=== PATIENT | female | born 1985 | race African-American/Black ===

== ENCOUNTER 2019-10-21 09:56 | Inpatient (IN) | payer OTHER ==
[2019-10-21 10:59] VITALS: BMI 37.9
--- NOTE | 2019-10-21 14:18 | HP ---
CIWA Score Nausea/Vomitin-Mild Nausea/No Vomiting Muscle Tremors: 1-None Visible, but [place] Anxiety: 2 Agitation: 0-Normal Activity Paroxysmal Sweats: No Perspiration Orientation: 1-Uncertain about Date Tacttile Disturbances: 0-None Auditory Disturbances: 0-None Visual Disturbances: 0-None Headache: 1-Very Mild CIWA-Ar Total Score: 6 - Admission Criteria OASAS Guidelines: Admission for Medically Managed Detox: Requires at least one of the followin. CIWA greater than 12 2. Seizures within the past 24 hours 3. Delirium tremens within the past 24 hours 4. Hallucinations within the past 24 hours 5. Acute intervention needed for co occurring medical disorder 6. Acute intervention needed for co occurring psychiatric disorder 7. Severe withdrawal that cannot be handled at a lower level of care (continued vomiting, continued diarrhea, abnormal vital signs) requiring intravenous medication and/or fluids 8. Admitting History and Physical - Primary Care Physician PCP: Dr. Prajapati ([address] [place] [address]) - Admission History of Present Illness: 34 yo f w/ PMH IDDM who comes in for help with detox/rehab from ETOH and marijuana/Spice. The patient endorses drinking 1x 25oz can of trip and 2 can of cobra daily since the age of 7. Last drink was yesterday. The patent denies blackouts or seizures related to alcohol in the past. The patient endorses smoking 2 blunts of marijuana per day with her last use being in June. The patient endorses smoking 2 blunts of K2 per day daily with her last use being today. The patient also has a history of insulin dependent diabetes. She states that she takes 20 units of novolog before each meal and on a sliding scale. She also takes 50units of levemir daily and 40 units HS. The patient also endorses a history of MDD which she was on psych meds for in the past. CIWA 6 Patient does not meet detox criteria at this time. Will admit the patient for rehab. History Source: Patient Limitations to Obtaining History: No Limitations - Past Medical History Endocrine: Yes: Diabetes Mellitus (Insulin dependent) - Past Surgical History Past Surgical History: Yes: None Admission ROS S - HPI Allergies/Adverse Reactions: Allergies Allergy/AdvReac Type Severity Reaction Status Date / Time bupropion [From Wellbutrin] Allergy Rash Verified 10/21/19 10:46 Penicillins Allergy Rash Verified 10/21/19 10:46 Pork/Porcine Containing Allergy Rash Verified 10/21/19 10:46 Products shellfish derived Allergy Rash Verified 10/21/19 10:46 - Ebola screening Have you traveled outside of the country in the last 21 days: No Have you had contact with anyone from an Ebola affected area: No - Review of Systems Constitutional: Weakness EENT: reports: No Symptoms Reported Respiratory: reports: No Symptoms reported Cardiac: reports: No Symptoms Reported GI: reports: Nausea : reports: No Symptoms Reported Neuro: reports: Headache Psychiatric: reports: Judgement Intact, Mood/Affect Appropiate, Orientated x3 Patient History - Smoking Cessation Smoking history: Current every day smoker Have you smoked in the past 12 months: Yes Aproximately how many cigarettes per day: 10 Initiated information on smoking cessation: Yes 'Breaking Loose' booklet given: 10/21/19 - Substances abused Alcohol Substance route: Oral Frequency: Daily Amount used: (2)25oz beer & 1 trip Age of first use: 7 Date of last use: 10/21/19 K2/Spice Substance route: Smoking Frequency: Daily Amount used: 2 blunts Age of first use: 34 Date of last use: 10/21/19 Marijuana/Hashish Substance route: Smoking Frequency: Daily Amount used: 2 blunts Age of first use: 11 Date of last use: 10/21/19 Admission Physical Exam S - Vital Signs Vital Signs: Vital Signs - 24 hr 10/21/19 10:44 Temperature 97.6 F Pulse Rate 101 H Respiratory 20 Rate Blood Pressure 125/74 - Physical HEENTM: Yes: EOMI, Normal ENT Inspection, JULIANN Respiratory: Yes: Chest Non-Tender, Lungs Clear, Normal Breath Sounds, No Respiratory Distress, No Accessory Muscle Use Neck: Yes: Trachea in good position Cardiology: Yes: Regular Rhythm, Regular Rate, S1, S2. No: JVD, Murmur, Gallop/ S3, Gallop/S4 Abdominal: Yes: Normal Bowel Sounds, Non Tender, Flat, Soft Neurological: Yes: filter bed placer II-XII NML intact, Fully Oriented, Alert, Motor Strength 5/5, Normal Mood/Affect Integumentary: Yes: Normal Color, Dry, Warm - Diagnostic (1) Alcohol dependence Current Visit: Yes Status: Acute (2) Marijuana smoker Current Visit: Yes Status: Acute (3) Diabetes mellitus Current Visit: Yes Status: Acute Breathalyzer - Breathalyzer Breathalyzer: 0 Urine Drug Screen - Test Device Lot number: [id number] Expiration date: 05/12/21 - Control Is test valid?: Yes - Results Drug screen NEGATIVE: Yes Inpatient Rehab Admission - Rehab Decision to Admit Inpatient rehab admission?: Yes - Initial Determination Are CD services needed?: Yes Free of communicable disease: Yes Not in need of hospitalization: Yes - Rehab Admission Criteria Previous failed treatment: Yes Poor recovery environment: Yes Comorbidities: Yes Lacks judgement: Yes Patient is meeting Inpatient Rehab admission criteria:: Yes
[2019-10-21] MEDS ORDERED: MAG HYDROX/AL HYDROX/SIMETH 30 ML UNIT-DOSE CUP PO PRN (14:46)
[2019-10-21] MEDS ORDERED: MAGNESIUM CITRATE 300 ML BOTTLE PO PRN (14:46)
[2019-10-21] MEDS ORDERED: guaiFENesin 200 MG/10 ML 10 ML UNIT-DOSE CUPS PO PRN (14:46)
[2019-10-21] MEDS ORDERED: MAGNESIUM HYDROX 2400MG/30ML ORAL SUSPENSION 30 ML CUP PO PRN (14:46)
[2019-10-21] MEDS ORDERED: MENTHOL/PHENOL 1 EACH UD MM PRN (14:46)
[2019-10-21] MEDS ORDERED: LOPERAMIDE HCL 2 MG CAPSULE PO PRN (14:46)
[2019-10-21] MEDS ORDERED: IBUPROFEN 400 MG TABLET (FP) PO PRN (14:46)
[2019-10-21] MEDS ORDERED: ACETAMINOPHEN 325 MG TABLET (FP) PO PRN (14:46)
[2019-10-21] MEDS ORDERED: P-EPHED 60MG/TRIPROLIDI 2.5MG TABLET PO PRN (14:46)
--- NOTE | 2019-10-21 15:28 | PN ---
Teaching Attending Note Name of Resident: Matteo De León ATTENDING PHYSICIAN STATEMENT I saw and evaluated the patient. I reviewed the resident's note and discussed the case with the resident. I agree with the resident's findings and plan as documented. SUBJECTIVE:this 34 years old female with alcohol disorder,marijuana,k2 abused, multiple admissions to detox and rehab iddm bipolar disorder OBJECTIVE: Vital Signs Temperature 97.6 F 10/21/19 10:44 Pulse Rate 101 H 10/21/19 10:44 Respiratory Rate 20 10/21/19 10:44 Blood Pressure 125/74 10/21/19 10:44 O2 Sat by Pulse Oximetry (%) ASSESSMENT AND PLAN: this patient need inpatient rehab,diabetic monitoring with insulin coverage, psychiatric consultation
[2019-10-21] MEDS ORDERED: TUBERCULIN PPD 5 TU/0.1ML VIAL ID ONE (15:29)
[2019-10-21] MEDS ORDERED: INSULIN (NOVOLOG) ASPART 100 UNITS/ML 10ML VIAL SQ SCH (16:30)
[2019-10-21] MEDS: INSULIN (NOVOLOG) ASPART 100 UNITS/ML 10ML VIAL SQ SCH (16:39)
[2019-10-21] MEDS: INSULIN SLIDING SCALE (NOVOLOG) 1 VIAL SQ SCH ×2 (16:40→21:26)
[2019-10-21] MEDS: INSULIN (LEVEMIR) 100 UNITS/ML UNITS SQ SCH (21:24)
[2019-10-21] MEDS: THIAMINE HCL 100 MG TABLET (FP) PO SCH (21:26)
[2019-10-21] MEDS: MELATONIN 5 MG TABLETS PO PRN (21:27)
[2019-10-22] MEDS: INSULIN (NOVOLOG) ASPART 100 UNITS/ML 10ML VIAL SQ SCH ×3 (07:46→17:53)
[2019-10-22] MEDS: INSULIN SLIDING SCALE (NOVOLOG) 1 VIAL SQ SCH ×4 (07:48→21:16)
[2019-10-22] MEDS: PRENATAL VITAMINS W/ FOLIC ACID TABLET (FP) PO SCH (09:59)
[2019-10-22] MEDS ORDERED: PATIENT'S OWN MEDICATION (NON-FORMULARY) (Insulin Detemir [Levemir Flextouch] 50 UNIT) SQ SCH (10:00)
--- NOTE | 2019-10-22 10:53 | PN ---
S Progress Note Note: Patient is a 34 yo female w/ PMH of Bipolar disorder and IDDM who comes in to rehab for ETOH and marijuana/Spice dependence. PCP is Dr. Latanya Raygoza. Admitted to rehab 10/21/2019. States she feels well, just tired. Psych consult ordered upon admission. Laboratory Tests 10/21/19 10/21/19 10/21/19 13:23 14:51 16:35 POC Glucometer 368 469 POC Urine HCG, Qual Negative 10/21/19 10/22/19 21:23 06:51 POC Glucometer > 600 327 POC Urine HCG, Qual Vital Signs Temperature 98.4 F 10/22/19 07:02 Pulse Rate 99 H 10/22/19 07:02 Respiratory Rate 18 10/22/19 07:02 Blood Pressure 99/65 10/22/19 07:02 O2 Sat by Pulse Oximetry (%) PE: alert and oriented x 3 skin warm and dry +perrla, eoms intact bl in no acute distress ext full rom, amb ad pennie no tremors A/P: IDDM ETOH/marijuana/K2 dependence continue current medications and rehab services BGM monitoring as ordered Labs pending
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
[2019-10-22 10:56] LABS: URINE COLOR YELLOW
[2019-10-22 10:57] LABS: URINE APPEARANCE CLOUDY; URINE BILIRUBIN NEGATIVE (NEGATIVE); URINE GLUCOSE (UA) 3+ (NEGATIVE); URINE KETONE NEGATIVE (NEGATIVE)
[2019-10-22 10:58] LABS: URINE LEUK ESTERASE NEGATIVE (NEGATIVE); URINE NITRITE NEGATIVE (NEGATIVE); URINE PROTEIN 1+ (NEGATIVE)
[2019-10-22 10:59] LABS: EPI CELLS 11 /HPF (0-5/HPF); HYALINE CASTS 5.16 /lpf (0-8); URINE WBC 12.7 /hpf (0-5)
[2019-10-22 11:00] LABS: URINE BACTERIA 532.2 /hpf (NEGATIVE)
[2019-10-22 11:46] LABS: HEMATOCRIT 32.7 % (32.4-45.2); HEMOGLOBIN 10.7 GM/dL (10.7-15.3); MCH 25.1 pg (25.7-33.7); MCHC 32.8 g/dl (32.0-36.0); MEAN CELL VOLUME 76.5 fl (80-96); MEAN PLT VOLUME 9.4 fl (7.5-11.1); PLATELET COUNT 212 K/MM3 (134-434); RBC 4.27 M/mm3 (3.60-5.2); RDW 19.5 % (11.6-15.6); WHITE BLOOD COUNT 3.7 K/mm3 (4.0-10.0)
[2019-10-22 11:53] LABS: ALBUMIN 2.8 g/dl (3.4-5.0); BILIRUBIN,TOTAL 0.3 mg/dL (0.2-1); BLOOD UREA NITROGEN 7.4 mg/dL (7-18); CREATININE 0.8 mg/dL (0.55-1.3); POTASSIUM 4.1 mmol/L (3.5-5.1); TOT PROT 5.5 g/dl (6.4-8.2)
[2019-10-22] MEDS: INSULIN (LEVEMIR) 100 UNITS/ML UNITS SQ SCH (21:15)
[2019-10-22] MEDS: ARIPiprazole 10 MG TABLET PO SCH (21:18)
[2019-10-22] MEDS: ESCITALOPRAM OXALATE 10 MG TABLET (FP) PO SCH (21:18)
[2019-10-22] MEDS: THIAMINE HCL 100 MG TABLET (FP) PO SCH (21:18)
[2019-10-22] MEDS: CALCIUM 250MG/VIT-D 125 UNITS 1 COMBO TABLET PO SCH (21:20)
[2019-10-23] MEDS: INSULIN (NOVOLOG) ASPART 100 UNITS/ML 10ML VIAL SQ SCH ×3 (07:56→16:38)
[2019-10-23] MEDS ORDERED: PT OWN MED DRAWER 7, Y5N ONE ×2 (08:14→18:55)
[2019-10-23] MEDS: CALCIUM 250MG/VIT-D 125 UNITS 1 COMBO TABLET PO SCH ×2 (09:51→21:22)
[2019-10-23] MEDS: PRENATAL VITAMINS W/ FOLIC ACID TABLET (FP) PO SCH (09:51)
[2019-10-23] MEDS: NICOTINE POLACRILEX 2 MG GUM BUC PRN ×2 (16:34→21:23)
[2019-10-23] MEDS: INSULIN (LEVEMIR) 100 UNITS/ML UNITS SQ SCH (21:20)
[2019-10-23] MEDS: MELATONIN 5 MG TABLETS PO PRN (21:22)
[2019-10-23] MEDS: ESCITALOPRAM OXALATE 10 MG TABLET (FP) PO SCH (21:22)
[2019-10-23] MEDS: ARIPiprazole 10 MG TABLET PO SCH (21:22)
[2019-10-23] MEDS: THIAMINE HCL 100 MG TABLET (FP) PO SCH (21:22)
[2019-10-24] MEDS: INSULIN (NOVOLOG) ASPART 100 UNITS/ML 10ML VIAL SQ SCH ×3 (07:42→16:36)
[2019-10-24] MEDS ORDERED: PT OWN MED DRAWER 7, Y5N ONE ×2 (08:17→20:04)
[2019-10-24] MEDS: CALCIUM 250MG/VIT-D 125 UNITS 1 COMBO TABLET PO SCH ×2 (09:45→21:28)
[2019-10-24] MEDS: PRENATAL VITAMINS W/ FOLIC ACID TABLET (FP) PO SCH (09:45)
[2019-10-24] MEDS: NICOTINE POLACRILEX 2 MG GUM BUC PRN (11:51)
[2019-10-24] MEDS: ESCITALOPRAM OXALATE 10 MG TABLET (FP) PO SCH (21:28)
[2019-10-24] MEDS: INSULIN (LEVEMIR) 100 UNITS/ML UNITS SQ SCH (21:28)
[2019-10-24] MEDS: ARIPiprazole 10 MG TABLET PO SCH (21:28)
[2019-10-24] MEDS: THIAMINE HCL 100 MG TABLET (FP) PO SCH (21:28)
[2019-10-24] MEDS: MELATONIN 5 MG TABLETS PO PRN (21:29)
[2019-10-25] MEDS: INSULIN (NOVOLOG) ASPART 100 UNITS/ML 10ML VIAL SQ SCH ×3 (07:35→17:37)
[2019-10-25] MEDS ORDERED: PT OWN MED DRAWER 7, Y5N ONE (08:39)
[2019-10-25] MEDS: CALCIUM 250MG/VIT-D 125 UNITS 1 COMBO TABLET PO SCH ×2 (09:58→21:24)
[2019-10-25] MEDS: PRENATAL VITAMINS W/ FOLIC ACID TABLET (FP) PO SCH (09:58)
[2019-10-25] MEDS ORDERED: INSULIN (NOVOLOG) ASPART 100 UNITS/ML 10ML VIAL ONE (11:57)
[2019-10-25 12:26] LABS: ALBUMIN 3.1 g/dl (3.4-5.0); BILIRUBIN,TOTAL 0.4 mg/dL (0.2-1); CALCIUM 8.6 mg/dL (8.5-10.1); CREATININE 0.7 mg/dL (0.55-1.3); POTASSIUM 4.3 mmol/L (3.5-5.1)
--- NOTE | 2019-10-25 13:10 | PN ---
[facility] Progress Note Note: Pt requests to see the MD re:her insulin. Pt reports he gets Levemir 50 units SC in the morning and Levemir 40 units sc at night. Also takes Regular insulin 20 units Three times daily with each meal. Pt reports she has a PCP, Dr Lambert at the [facility] on [address] [place] [address]. pt reports she saw the doctor a few days befor coming into treatment and she was prescribed Novolog and no Levemir. Discussed with patient the need to get intouch with her PCP before discharge on Home prescriptions recommended. Vital Signs - 24 hr 10/25/19 10/25/19 10/25/19 00:30 03:30 07:21 Temperature 97.7 F Pulse Rate 65 Respiratory 18 18 18 Rate Blood Pressure 108/68 Laboratory Tests 10/21/19 10/21/19 10/21/19 13:23 14:51 16:35 WBC RBC Hgb Hct MCV MCH MCHC RDW Plt Count MPV Sodium Potassium Chloride Carbon Dioxide Anion Gap BUN Creatinine Est GFR (CKD-EPI)AfAm Est GFR (CKD-EPI)NonAf POC Glucometer 368 469 Random Glucose Calcium Total Bilirubin AST ALT Alkaline Phosphatase Total Protein Albumin Urine Color Urine Appearance Urine pH Ur Specific [place] Urine Protein Urine Glucose (UA) Urine Ketones Urine Blood Urine Nitrite Urine Bilirubin Urine Urobilinogen Ur Leukocyte Esterase Urine WBC (Auto) Urine Casts (Auto) U Epithel Cells (Auto) Urine Bacteria (Auto) POC Urine HCG, Qual Negative RPR Titer 10/21/19 10/22/19 10/22/19 21:23 06:51 08:00 WBC RBC Hgb Hct MCV MCH MCHC RDW Plt Count MPV Sodium Potassium Chloride Carbon Dioxide Anion Gap BUN Creatinine Est GFR (CKD-EPI)AfAm Est GFR (CKD-EPI)NonAf POC Glucometer > 600 327 Random Glucose Calcium Total Bilirubin AST ALT Alkaline Phosphatase Total Protein Albumin Urine Color Yellow Urine Appearance Cloudy Urine pH 6.0 Ur Specific Kinz[place] 1.047 H Urine Protein 1+ H Urine Glucose (UA) 3+ H Urine Ketones Negative Urine Blood 3+ H Urine Nitrite Negative Urine Bilirubin Negative Urine Urobilinogen 1.0 Ur Leukocyte Esterase Negative Urine WBC (Auto) 12.7 Urine Casts (Auto) 5.16 U Epithel Cells (Auto) 11 Urine Bacteria (Auto) 532.2 POC Urine HCG, Qual RPR Titer 10/22/19 10/22/19 10/22/19 08:50 08:50 08:50 WBC 3.7 L RBC 4.27 Hgb 10.7 Hct 32.7 MCV 76.5 L MCH 25.1 L MCHC 32.8 RDW 19.5 H Plt Count 212 MPV 9.4 Sodium 133 L Potassium 4.1 Chloride 99 Carbon Dioxide 28 Anion Gap 6 L BUN 7.4 Creatinine 0.8 Est GFR (CKD-EPI)AfAm 109.93 Est GFR (CKD-EPI)NonAf 94.85 POC Glucometer Random Glucose 548 H* Calcium 8.0 L Total Bilirubin 0.3 AST 13 L ALT 17 Alkaline Phosphatase 72 Total Protein 5.5 L Albumin 2.8 L Urine Color Urine Appearance Urine pH Ur Specific Kinz[place] Urine Protein Urine Glucose (UA) Urine Ketones Urine Blood Urine Nitrite Urine Bilirubin Urine Urobilinogen Ur Leukocyte Esterase Urine WBC (Auto) Urine Casts (Auto) U Epithel Cells (Auto) Urine Bacteria (Auto) POC Urine HCG, Qual RPR Titer Nonreactive 10/22/19 10/22/19 10/22/19 11:56 17:03 21:14 WBC RBC Hgb Hct MCV MCH MCHC RDW Plt Count MPV Sodium Potassium Chloride Carbon Dioxide Anion Gap BUN Creatinine Est GFR (CKD-EPI)AfAm Est GFR (CKD-EPI)NonAf POC Glucometer 385 419 358 Random Glucose Calcium Total Bilirubin AST ALT Alkaline Phosphatase Total Protein Albumin Urine Color Urine Appearance Urine pH Ur Specific [place] Urine Protein Urine Glucose (UA) Urine Ketones Urine Blood Urine Nitrite Urine Bilirubin Urine Urobilinogen Ur Leukocyte Esterase Urine WBC (Auto) Urine Casts (Auto) U Epithel Cells (Auto) Urine Bacteria (Auto) POC Urine HCG, Qual RPR Titer 10/23/19 10/23/19 10/23/19 07:05 11:50 16:32 WBC RBC Hgb Hct MCV MCH MCHC RDW Plt Count MPV Sodium Potassium Chloride Carbon Dioxide Anion Gap BUN Creatinine Est GFR (CKD-EPI)AfAm Est GFR (CKD-EPI)NonAf POC Glucometer 245 259 459 Random Glucose Calcium Total Bilirubin AST ALT Alkaline Phosphatase Total Protein Albumin Urine Color Urine Appearance Urine pH Ur Specific Kin[place] Urine Protein Urine Glucose (UA) Urine Ketones Urine Blood Urine Nitrite Urine Bilirubin Urine Urobilinogen Ur Leukocyte Esterase Urine WBC (Auto) Urine Casts (Auto) U Epithel Cells (Auto) Urine Bacteria (Auto) POC Urine HCG, Qual RPR Titer 10/23/19 10/24/19 10/24/19 21:18 06:30 11:49 WBC RBC Hgb Hct MCV MCH MCHC RDW Plt Count MPV Sodium Potassium Chloride Carbon Dioxide Anion Gap BUN Creatinine Est GFR (CKD-EPI)AfAm Est GFR (CKD-EPI)NonAf POC Glucometer 478 305 392 Random Glucose Calcium Total Bilirubin AST ALT Alkaline Phosphatase Total Protein Albumin Urine Color Urine Appearance Urine pH Ur Specific [place] Urine Protein Urine Glucose (UA) Urine Ketones Urine Blood Urine Nitrite Urine Bilirubin Urine Urobilinogen Ur Leukocyte Esterase Urine WBC (Auto) Urine Casts (Auto) U Epithel Cells (Auto) Urine Bacteria (Auto) POC Urine HCG, Qual RPR Titer 10/24/19 10/24/19 10/25/19 16:30 21:25 06:38 WBC RBC Hgb Hct MCV MCH MCHC RDW Plt Count MPV Sodium Potassium Chloride Carbon Dioxide Anion Gap BUN Creatinine Est GFR (CKD-EPI)AfAm Est GFR (CKD-EPI)NonAf POC Glucometer 505 438 324 Random Glucose Calcium Total Bilirubin AST ALT Alkaline Phosphatase Total Protein Albumin Urine Color Urine Appearance Urine pH Ur Specific [place] Urine Protein Urine Glucose (UA) Urine Ketones Urine Blood Urine Nitrite Urine Bilirubin Urine Urobilinogen Ur Leukocyte Esterase Urine WBC (Auto) Urine Casts (Auto) U Epithel Cells (Auto) Urine Bacteria (Auto) POC Urine HCG, Qual RPR Titer 10/25/19 10/25/19 08:30 11:56 WBC RBC Hgb Hct MCV MCH MCHC RDW Plt Count MPV Sodium 133 L Potassium 4.3 Chloride 101 Carbon Dioxide 30 Anion Gap 2 L BUN 9.0 Creatinine 0.7 Est GFR (CKD-EPI)AfAm 129.19 Est GFR (CKD-EPI)NonAf 111.47 POC Glucometer 310 Random Glucose 362 H Calcium 8.6 Total Bilirubin 0.4 AST 15 ALT 21 Alkaline Phosphatase 75 Total Protein 6.0 L Albumin 3.1 L Urine Color Urine Appearance Urine pH Ur Specific Kin[place] Urine Protein Urine Glucose (UA) Urine Ketones Urine Blood Urine Nitrite Urine Bilirubin Urine Urobilinogen Ur Leukocyte Esterase Urine WBC (Auto) Urine Casts (Auto) U Epithel Cells (Auto) Urine Bacteria (Auto) POC Urine HCG, Qual RPR Titer Alert o x 3 nad oob ambulating with steady gait. A/P Rehab patient hx IDDM Maintain safety D/w pt will be followed up by Resident Consult for medication management Dietary consult ordered.
--- NOTE | 2019-10-25 14:03 | CONSULT ---
Consultation: REQUESTING PROVIDER: CONSULT REQUEST: We have been asked to medically evaluate this patient for diabetic control. HISTORY OF PRESENT ILLNESS: 34 yo f w/ PMH IDDM who comes in for help with detox/rehab from ETOH and marijuana/Spice. We were consulted for assistance with management of her insulin regimen. The patient states that she usually takes Levemir 50units in the AM and 40 units in the PM as well as Novolog 20 units with each meal. On admission, the patient was placed on Levemir 40 units in the PM only to avoid hypoglycemia as her eating habits in the community were unclear. On interview, the patient states that she is eating similar to how she eats in the community and is concerned that her sugar was consistently high. Patient denies signs or symptoms of hyperglycemia or HHS. On chart review, the patient' BGM has been between 300 and 500 over the past few days. REVIEW OF SYSTEMS: CONSTITUTIONAL: Absent: fever, chills, diaphoresis, generalized weakness, malaise, loss of appetite, weight change HEENT: Absent: rhinorrhea, nasal congestion, throat pain, throat swelling, difficulty swallowing, mouth swelling, ear pain, eye pain, visual changes CARDIOVASCULAR: Absent: chest pain, syncope, palpitations, irregular heart rate, lightheadedness , peripheral edema RESPIRATORY: Absent: cough, shortness of breath, dyspnea with exertion, orthopnea, wheezing, stridor, hemoptysis GASTROINTESTINAL: Absent: abdominal pain, abdominal distension, nausea, vomiting, diarrhea, constipation, melena, hematochezia GENITOURINARY: Absent: dysuria, frequency, urgency, hesitancy, hematuria, flank pain, genital pain MUSCULOSKELETAL: Absent: myalgia, arthralgia, joint swelling, back pain, neck pain SKIN: Absent: rash, itching, pallor HEMATOLOGIC/IMMUNOLOGIC: Absent: easy bleeding, easy bruising, lymphadenopathy, frequent infections ENDOCRINE: Absent: unexplained weight gain, unexplained weight loss, heat intolerance, cold intolerance NEUROLOGIC: Absent: headache, focal weakness or paresthesias, dizziness, unsteady gait, seizure, mental status changes, bladder or bowel incontinence PSYCHIATRIC: Absent: anxiety, depression, suicidal or homicidal ideation, hallucinations. PHYSICAL EXAMINATION Vital Signs - 24 hr 10/25/19 10/25/19 10/25/19 00:30 03:30 07:21 Temperature 97.7 F Pulse Rate 65 Respiratory 18 18 18 Rate Blood Pressure 108/68 GENERAL: Awake, alert, and fully oriented, in no acute distress. LUNGS: Breath sounds equal, clear to auscultation bilaterally. No wheezes, and no crackles. No accessory muscle use. HEART: Regular rate and rhythm, normal S1 and S2 without murmur, rub or gallop. ABDOMEN: Soft, nontender, not distended, normoactive bowel sounds, no guarding, no rebound, no masses. No hepatomegaly or splenomegaly. LOWER EXTREMITIES: 2+ pulses, warm, well-perfused. No calf tenderness. No peripheral edema. SKIN: Warm, dry, normal turgor, no rashes or lesions noted. Laboratory Results - last 24 hr 10/24/19 10/24/19 10/25/19 16:30 21:25 06:38 Sodium Potassium Chloride Carbon Dioxide Anion Gap BUN Creatinine Est GFR (CKD-EPI)AfAm Est GFR (CKD-EPI)NonAf POC Glucometer 505 438 324 Random Glucose Calcium Total Bilirubin AST ALT Alkaline Phosphatase Total Protein Albumin 10/25/19 10/25/19 08:30 11:56 Sodium 133 L Potassium 4.3 Chloride 101 Carbon Dioxide 30 Anion Gap 2 L BUN 9.0 Creatinine 0.7 Est GFR (CKD-EPI)AfAm 129.19 Est GFR (CKD-EPI)NonAf 111.47 POC Glucometer 310 Random Glucose 362 H Calcium 8.6 Total Bilirubin 0.4 AST 15 ALT 21 Alkaline Phosphatase 75 Total Protein 6.0 L Albumin 3.1 L Active Medications Generic Name Dose Route Start Last Admin Trade Name Freq PRN Reason Stop Dose Admin Acetaminophen 650 mg 10/21/19 14:46 Tylenol - PO Q4H PRN FEVER Al Hydroxide/Mg Hydroxide 30 ml 10/21/19 14:46 Mylanta Oral Suspension - PO Q6H PRN DYSPEPSIA Aripiprazole 10 mg 10/22/19 22:00 10/24/19 21:28 Abilify PO 10 mg HS SHAHID Administration Calcium/Vitamin D 1 tab 10/22/19 22:00 10/25/19 09:58 Oscal 250 Mg+D - PO 10/29/19 21:59 1 tab BID SHAHID Administration Escitalopram Oxalate 10 mg 10/22/19 22:00 10/24/19 21:28 Lexapro - PO 10 mg HS SHAHID Administration Eucalyptus/Menthol/Phenol/Sorbitol 1 each 10/21/19 14:46 Cepastat Lozenge - MM Q4H PRN SORE THROAT Guaifenesin 10 ml 10/21/19 14:46 Robitussin - PO Q6H PRN COUGH Ibuprofen 400 mg 10/21/19 14:46 Motrin - PO Q6H PRN Pain level 4-6 Insulin Aspart 10 units 10/21/19 16:30 10/25/19 11:58 Novolog Vial SQ 10 units TIDAC [facility] Administration Protocol Insulin Aspart 1 vial 10/25/19 16:30 Novolog Vial Sliding Scale - SQ ACHS [facility] Protocol Insulin Detemir 40 units 10/21/19 22:00 10/24/19 21:28 Levemir Vial SQ 40 units HS SHAHID Administration Loperamide HCl 4 mg 10/21/19 14:46 Imodium - PO Q6H PRN DIARRHEA Magnesium Citrate 300 ml 10/21/19 14:46 Citroma - PO Q48H PRN CONSTIPATION Magnesium Hydroxide 30 ml 10/21/19 14:46 Milk Of Magnesia - PO DAILY PRN CONSTIPATION Melatonin 5 mg 10/21/19 22:00 10/24/19 21:29 Melatonin PO 5 mg HS PRN Administration INSOMNIA Nicotine Polacrilex 2 mg 10/21/19 14:46 10/24/19 11:51 Nicorette Gum - BUC 2 mg Q2H PRN Administration NICOTINE REPLACEMENT RX Multivit/Folic Acid/Iron 1 tab 10/22/19 10:00 10/25/19 09:58 Vitamins (Sjr) - PO Not Given DAILY [facility] Pseudoephedrine/Triprolidine 1 combo 10/21/19 14:46 Actifed - PO TID PRN NASAL CONGESTION Thiamine HCl 100 mg 10/21/19 22:00 10/24/19 21:28 Vitamin B1 - PO 100 mg HS [facility] Administration ASSESSMENT/PLAN: 34 yo f w/ PMH IDDM who comes in for help with detox/rehab from ETOH and marijuana/Spice. We were consulted for assistance with management of her insulin regimen. #IDDM -patient consistently hyperglycemic on current regimen -per patient, she is eating normally right now; no nausea, vomiting, missed meals. -Patient's home medications verified with the patient's pharmacy -will resume the patient's home insulin regimen at this time. -monitor the patiet closely for signs of hypoglycemia -will start ISS to cover the patient in the event of breakthrough hyperglycemic episodes Dispo: We will continue to follow the patient. Thank you for this consultative opportunity. Problem List - Problems (1) Alcohol dependence Code(s): F10.20 - ALCOHOL DEPENDENCE, UNCOMPLICATED (2) Marijuana smoker Code(s): F12.90 - CANNABIS USE, UNSPECIFIED, UNCOMPLICATED (3) Diabetes mellitus Code(s): E11.9 - TYPE 2 DIABETES MELLITUS WITHOUT COMPLICATIONS Visit type - Emergency Visit Emergency Visit: No - New Patient This patient is new to me today: Yes Date on this admission: 10/25/19 - Critical Care Critical Care patient: No ATTENDING PHYSICIAN STATEMENT I saw and evaluated the patient. I reviewed the resident's note and discussed the case with the resident. I agree with the resident's findings and plan as documented. SUBJECTIVE: OBJECTIVE: ASSESSMENT AND PLAN:
--- NOTE | 2019-10-25 14:32 | PN ---
[facility] Progress Note Note: PATIENT C/O IRRITATION AND SCRATCH TO INNER THIGH AREA. NO ACTIVE BLEEDING REPORTED. WILL ORDER BACITRACIN BID X 5 DAYS. Vital Signs Temperature 97.7 F 10/25/19 07:21 Pulse Rate 65 10/25/19 07:21 Respiratory Rate 18 10/25/19 07:21 Blood Pressure 108/68 10/25/19 07:21 O2 Sat by Pulse Oximetry (%)
[2019-10-25] MEDS: INSULIN SLIDING SCALE (NOVOLOG) 1 VIAL SQ SCH ×2 (18:25→21:25)
[2019-10-25] MEDS: INSULIN (LEVEMIR) 100 UNITS/ML UNITS SQ SCH (21:20)
[2019-10-25] MEDS: ARIPiprazole 10 MG TABLET PO SCH (21:23)
[2019-10-25] MEDS: BACITRACIN 15 GM TUBE TOPICAL OINTMENT TP SCH (21:23)
[2019-10-25] MEDS: THIAMINE HCL 100 MG TABLET (FP) PO SCH (21:23)
[2019-10-25] MEDS: MELATONIN 5 MG TABLETS PO PRN (21:23)
[2019-10-25] MEDS: ESCITALOPRAM OXALATE 10 MG TABLET (FP) PO SCH (21:23)
[2019-10-26 07:40] VITALS: TEMP 97.8
[2019-10-26] MEDS: INSULIN SLIDING SCALE (NOVOLOG) 1 VIAL SQ SCH ×4 (08:48→21:21)
[2019-10-26] MEDS: INSULIN (NOVOLOG) ASPART 100 UNITS/ML 10ML VIAL SQ SCH ×3 (08:49→16:42)
[2019-10-26] MEDS ORDERED: PT OWN MED DRAWER 7, Y5N ONE (08:52)
[2019-10-26] MEDS ORDERED: INSULIN (NOVOLOG) ASPART 100 UNITS/ML 10ML VIAL ONE ×2 (08:52→21:21)
[2019-10-26] MEDS: CALCIUM 250MG/VIT-D 125 UNITS 1 COMBO TABLET PO SCH ×2 (10:49→21:24)
[2019-10-26] MEDS: INSULIN (LEVEMIR) 100 UNITS/ML UNITS SQ SCH ×2 (10:53→21:16)
[2019-10-26] MEDS: BACITRACIN 15 GM TUBE TOPICAL OINTMENT TP SCH ×2 (10:54→21:25)
[2019-10-26] MEDS: PRENATAL VITAMINS W/ FOLIC ACID TABLET (FP) PO SCH (10:55)
--- NOTE | 2019-10-26 17:48 | PN ---
S Progress Note Note: I was called for cbg of 405mg/dl. Pt is on novolog insulin 20units SQ tid and novolog insulin sliding scale. machine sander instructed to administer novolog 20units on schedule and hold 5pm novolog insulin sliding scale.
[2019-10-26] MEDS: ARIPiprazole 10 MG TABLET PO SCH (21:23)
[2019-10-26] MEDS: THIAMINE HCL 100 MG TABLET (FP) PO SCH (21:23)
[2019-10-26] MEDS: ESCITALOPRAM OXALATE 10 MG TABLET (FP) PO SCH (21:23)
[2019-10-27] MEDS: INSULIN SLIDING SCALE (NOVOLOG) 1 VIAL SQ SCH ×2 (06:54→11:57)
[2019-10-27 07:16] VITALS: BP 105/69; PULSE 68
[2019-10-27] MEDS: INSULIN (NOVOLOG) ASPART 100 UNITS/ML 10ML VIAL SQ SCH ×2 (08:11→12:45)
--- NOTE | 2019-10-27 08:20 | PN ---
Teaching Attending Note Name of Resident: Matteo De León ATTENDING PHYSICIAN STATEMENT I saw and evaluated the patient. I reviewed the resident's note and discussed the case with the resident. I agree with the resident's findings and plan as documented. SUBJECTIVE: I agree with resident's subjective findings OBJECTIVE: I agree with resident's objective findings. ASSESSMENT AND PLAN: Agree with medical assessment of her diabetes. Dr. Barraza
[2019-10-27] MEDS ORDERED: PT OWN MED DRAWER 7, Y5N ONE (09:16)
[2019-10-27] MEDS: CALCIUM 250MG/VIT-D 125 UNITS 1 COMBO TABLET PO SCH (10:23)
[2019-10-27] MEDS: PRENATAL VITAMINS W/ FOLIC ACID TABLET (FP) PO SCH (10:23)
[2019-10-27] MEDS: BACITRACIN 15 GM TUBE TOPICAL OINTMENT TP SCH (10:24)
--- NOTE | 2019-10-27 10:49 | PN ---
[facility] Progress Note Note: Nurse Marely called to report BGM at 10 a.m of 161 mg/dl. Pt to receive levemir 50 mg sq at 10 a.m. as scheduled. hold sliding scale at this time. Vital Signs - 24 hr 10/27/19 10/27/19 10/27/19 00:30 03:30 07:16 Temperature 97.8 F Pulse Rate 68 Respiratory 18 18 18 Rate Blood Pressure 105/69
[2019-10-27] MEDS: INSULIN (LEVEMIR) 100 UNITS/ML UNITS SQ SCH (10:50)
[2019-10-27] MEDS ORDERED: INSULIN (NOVOLOG) ASPART 100 UNITS/ML 10ML VIAL SQ ONE (13:45)
--- NOTE | 2019-10-27 14:07 | DS ---
[facility] Rehab Discharge Summary - [facility] Rehab Discharge Summary Admission Date: 10/21/19 Discharge Date: 10/27/19 - History Present History: Alcohol dependence, Cannabis dependence Pertinent Past History: Pt admitted on 10/18/19 for alcohol and cocaine use. Pt with diabetes. Using both levemir and novolog insulin. f/s today has been in the low 100's. Pt wanted to have usual dose of Novolog 20 units with a BGM of 111. We felt it was unsafe to give 20 units with a low BGM. Pt now states that since she is not getting the insulin she needs she is going to sign out now. Tried to d/w the risk of hypoglycemia and coma if her BGM goes too low- pt received 6 units of novolog for f/s ~250. Pt states she will f/u her PCP, Dr Lambert at the [facility] on [address] [place] [address]. pt reports she saw the doctor a few days before coming into treatment and she was prescribed Novolog and no Levemir. Pt states she needs levemir. She has all the other medications. - Discharge Physical Exam Vital Signs: Vital Signs Temperature 97.8 F 10/27/19 07:16 Pulse Rate 68 10/27/19 07:16 Respiratory Rate 18 10/27/19 07:16 Blood Pressure 105/69 10/27/19 07:16 O2 Sat by Pulse Oximetry (%) Pertinent Admission Physical Exam Findings: alert and oriented Vital Signs - 24 hr 10/27/19 10/27/19 10/27/19 00:30 03:30 07:16 Temperature 97.8 F Pulse Rate 68 Respiratory 18 18 18 Rate Blood Pressure 105/69 Laboratory Tests 10/21/19 10/21/19 10/21/19 13:23 14:51 16:35 WBC RBC Hgb Hct MCV MCH MCHC RDW Plt Count MPV Sodium Potassium Chloride Carbon Dioxide Anion Gap BUN Creatinine Est GFR (CKD-EPI)AfAm Est GFR (CKD-EPI)NonAf POC Glucometer [phone] Random Glucose Calcium Total Bilirubin AST ALT Alkaline Phosphatase Total Protein Albumin Urine Color Urine Appearance Urine pH Ur Specific [place] Urine Protein Urine Glucose (UA) Urine Ketones Urine Blood Urine Nitrite Urine Bilirubin Urine Urobilinogen Ur Leukocyte Esterase Urine WBC (Auto) Urine Casts (Auto) U Epithel Cells (Auto) Urine Bacteria (Auto) POC Urine HCG, Qual Negative RPR Titer 10/21/19 10/22/19 10/22/19 21:23 06:51 08:00 WBC RBC Hgb Hct MCV MCH MCHC RDW Plt Count MPV Sodium Potassium Chloride Carbon Dioxide Anion Gap BUN Creatinine Est GFR (CKD-EPI)AfAm Est GFR (CKD-EPI)NonAf POC Glucometer > 600 327 Random Glucose Calcium Total Bilirubin AST ALT Alkaline Phosphatase Total Protein Albumin Urine Color Yellow Urine Appearance Cloudy Urine pH 6.0 Ur Specific [place] 1.047 H Urine Protein 1+ H Urine Glucose (UA) 3+ H Urine Ketones Negative Urine Blood 3+ H Urine Nitrite Negative Urine Bilirubin Negative Urine Urobilinogen 1.0 Ur Leukocyte Esterase Negative Urine WBC (Auto) 12.7 Urine Casts (Auto) 5.16 U Epithel Cells (Auto) 11 Urine Bacteria (Auto) 532.2 POC Urine HCG, Qual RPR Titer 10/22/19 10/22/19 10/22/19 08:50 08:50 08:50 WBC 3.7 L RBC 4.27 Hgb 10.7 Hct 32.7 MCV 76.5 L MCH 25.1 L MCHC 32.8 RDW 19.5 H Plt Count 212 MPV 9.4 Sodium 133 L Potassium 4.1 Chloride 99 Carbon Dioxide 28 Anion Gap 6 L BUN 7.4 Creatinine 0.8 Est GFR (CKD-EPI)AfAm 109.93 Est GFR (CKD-EPI)NonAf 94.85 POC Glucometer Random Glucose 548 H* Calcium 8.0 L Total Bilirubin 0.3 AST 13 L ALT 17 Alkaline Phosphatase 72 Total Protein 5.5 L Albumin 2.8 L Urine Color Urine Appearance Urine pH Ur Specific [place] Urine Protein Urine Glucose (UA) Urine Ketones Urine Blood Urine Nitrite Urine Bilirubin Urine Urobilinogen Ur Leukocyte Esterase Urine WBC (Auto) Urine Casts (Auto) U Epithel Cells (Auto) Urine Bacteria (Auto) POC Urine HCG, Qual RPR Titer Nonreactive 10/22/19 10/22/19 10/22/19 11:56 17:03 21:14 WBC RBC Hgb Hct MCV MCH MCHC RDW Plt Count MPV Sodium Potassium Chloride Carbon Dioxide Anion Gap BUN Creatinine Est GFR (CKD-EPI)AfAm Est GFR (CKD-EPI)NonAf POC Glucometer [phone] Random Glucose Calcium Total Bilirubin AST ALT Alkaline Phosphatase Total Protein Albumin Urine Color Urine Appearance Urine pH Ur Specific [place] Urine Protein Urine Glucose (UA) Urine Ketones Urine Blood Urine Nitrite Urine Bilirubin Urine Urobilinogen Ur Leukocyte Esterase Urine WBC (Auto) Urine Casts (Auto) U Epithel Cells (Auto) Urine Bacteria (Auto) POC Urine HCG, Qual RPR Titer 10/23/19 10/23/19 10/23/19 07:05 11:50 16:32 WBC RBC Hgb Hct MCV MCH MCHC RDW Plt Count MPV Sodium Potassium Chloride Carbon Dioxide Anion Gap BUN Creatinine Est GFR (CKD-EPI)AfAm Est GFR (CKD-EPI)NonAf POC Glucometer [phone] Random Glucose Calcium Total Bilirubin AST ALT Alkaline Phosphatase Total Protein Albumin Urine Color Urine Appearance Urine pH Ur Specific [place] Urine Protein Urine Glucose (UA) Urine Ketones Urine Blood Urine Nitrite Urine Bilirubin Urine Urobilinogen Ur Leukocyte Esterase Urine WBC (Auto) Urine Casts (Auto) U Epithel Cells (Auto) Urine Bacteria (Auto) POC Urine HCG, Qual RPR Titer 10/23/19 10/24/19 10/24/19 21:18 06:30 11:49 WBC RBC Hgb Hct MCV MCH MCHC RDW Plt Count MPV Sodium Potassium Chloride Carbon Dioxide Anion Gap BUN Creatinine Est GFR (CKD-EPI)AfAm Est GFR (CKD-EPI)NonAf POC Glucometer [phone] Random Glucose Calcium Total Bilirubin AST ALT Alkaline Phosphatase Total Protein Albumin Urine Color Urine Appearance Urine pH Ur Specific [place] Urine Protein Urine Glucose (UA) Urine Ketones Urine Blood Urine Nitrite Urine Bilirubin Urine Urobilinogen Ur Leukocyte Esterase Urine WBC (Auto) Urine Casts (Auto) U Epithel Cells (Auto) Urine Bacteria (Auto) POC Urine HCG, Qual RPR Titer 10/24/19 10/24/19 10/25/19 16:30 21:25 06:38 WBC RBC Hgb Hct MCV MCH MCHC RDW Plt Count MPV Sodium Potassium Chloride Carbon Dioxide Anion Gap BUN Creatinine Est GFR (CKD-EPI)AfAm Est GFR (CKD-EPI)NonAf POC Glucometer [phone] Random Glucose Calcium Total Bilirubin AST ALT Alkaline Phosphatase Total Protein Albumin Urine Color Urine Appearance Urine pH Ur Specific [place] Urine Protein Urine Glucose (UA) Urine Ketones Urine Blood Urine Nitrite Urine Bilirubin Urine Urobilinogen Ur Leukocyte Esterase Urine WBC (Auto) Urine Casts (Auto) U Epithel Cells (Auto) Urine Bacteria (Auto) POC Urine HCG, Qual RPR Titer 10/25/19 10/25/19 10/25/19 08:30 11:56 16:44 WBC RBC Hgb Hct MCV MCH MCHC RDW Plt Count MPV Sodium 133 L Potassium 4.3 Chloride 101 Carbon Dioxide 30 Anion Gap 2 L BUN 9.0 Creatinine 0.7 Est GFR (CKD-EPI)AfAm 129.19 Est GFR (CKD-EPI)NonAf 111.47 POC Glucometer 310 441 Random Glucose 362 H Calcium 8.6 Total Bilirubin 0.4 AST 15 ALT 21 Alkaline Phosphatase 75 Total Protein 6.0 L Albumin 3.1 L Urine Color Urine Appearance Urine pH Ur Specific [place] Urine Protein Urine Glucose (UA) Urine Ketones Urine Blood Urine Nitrite Urine Bilirubin Urine Urobilinogen Ur Leukocyte Esterase Urine WBC (Auto) Urine Casts (Auto) U Epithel Cells (Auto) Urine Bacteria (Auto) POC Urine HCG, Qual RPR Titer 10/25/19 10/26/19 10/26/19 21:19 06:50 10:50 WBC RBC Hgb Hct MCV MCH MCHC RDW Plt Count MPV Sodium Potassium Chloride Carbon Dioxide Anion Gap BUN Creatinine Est GFR (CKD-EPI)AfAm Est GFR (CKD-EPI)NonAf POC Glucometer [phone] Random Glucose Calcium Total Bilirubin AST ALT Alkaline Phosphatase Total Protein Albumin Urine Color Urine Appearance Urine pH Ur Specific [place] Urine Protein Urine Glucose (UA) Urine Ketones Urine Blood Urine Nitrite Urine Bilirubin Urine Urobilinogen Ur Leukocyte Esterase Urine WBC (Auto) Urine Casts (Auto) U Epithel Cells (Auto) Urine Bacteria (Auto) POC Urine HCG, Qual RPR Titer 10/26/19 10/26/19 10/26/19 12:01 16:39 21:20 WBC RBC Hgb Hct MCV MCH MCHC RDW Plt Count MPV Sodium Potassium Chloride Carbon Dioxide Anion Gap BUN Creatinine Est GFR (CKD-EPI)AfAm Est GFR (CKD-EPI)NonAf POC Glucometer [phone] Random Glucose Calcium Total Bilirubin AST ALT Alkaline Phosphatase Total Protein Albumin Urine Color Urine Appearance Urine pH Ur Specific [place] Urine Protein Urine Glucose (UA) Urine Ketones Urine Blood Urine Nitrite Urine Bilirubin Urine Urobilinogen Ur Leukocyte Esterase Urine WBC (Auto) Urine Casts (Auto) U Epithel Cells (Auto) Urine Bacteria (Auto) POC Urine HCG, Qual RPR Titer 10/27/19 10/27/19 10/27/19 06:52 10:22 11:55 WBC RBC Hgb Hct MCV MCH MCHC RDW Plt Count MPV Sodium Potassium Chloride Carbon Dioxide Anion Gap BUN Creatinine Est GFR (CKD-EPI)AfAm Est GFR (CKD-EPI)NonAf POC Glucometer [phone] Random Glucose Calcium Total Bilirubin AST ALT Alkaline Phosphatase Total Protein Albumin Urine Color Urine Appearance Urine pH Ur Specific [place] Urine Protein Urine Glucose (UA) Urine Ketones Urine Blood Urine Nitrite Urine Bilirubin Urine Urobilinogen Ur Leukocyte Esterase Urine WBC (Auto) Urine Casts (Auto) U Epithel Cells (Auto) Urine Bacteria (Auto) POC Urine HCG, Qual RPR Titer 10/27/19 10/27/19 10/27/19 12:25 12:59 13:47 WBC RBC Hgb Hct MCV MCH MCHC RDW Plt Count MPV Sodium Potassium Chloride Carbon Dioxide Anion Gap BUN Creatinine Est GFR (CKD-EPI)AfAm Est GFR (CKD-EPI)NonAf POC Glucometer [phone] Random Glucose Calcium Total Bilirubin AST ALT Alkaline Phosphatase Total Protein Albumin Urine Color Urine Appearance Urine pH Ur Specific [place] Urine Protein Urine Glucose (UA) Urine Ketones Urine Blood Urine Nitrite Urine Bilirubin Urine Urobilinogen Ur Leukocyte Esterase Urine WBC (Auto) Urine Casts (Auto) U Epithel Cells (Auto) Urine Bacteria (Auto) POC Urine HCG, Qual RPR Titer alert and oriented ambulatory - Treatment Discharge Condition: Discharge condition good - Medication Discharge Medications: Ambulatory Orders Insulin (Novolog) [Novolog Vial] 20 units SQ TID 10/21/19 Insulin Detemir [Levemir Flextouch] 40 unit SQ HS #14 insuln.pen 10/27/19 Insulin Detemir [Levemir Flextouch] 50 unit SQ DAILY #14 insuln.pen 10/27/19 - Medication-Assisted Treatment (MAT) Medication-Assisted Treatment (MAT): No - Discharge Instructions Diet, activity, other medical instructions: Diet: Activity: Other medical instructions: - Diagnosis (1) Alcohol dependence Current Visit: Yes Status: Acute (2) Cannabis dependence Current Visit: Yes Status: Acute (3) Diabetes mellitus Current Visit: Yes Status: Acute (4) Nicotine dependence Current Visit: Yes Status: Chronic (5) PTSD (post-traumatic stress disorder) Current Visit: Yes Status: Chronic - Follow-up Referral Minutes to complete discharge: 30
== END 2019-10-27 14:42 | disposition home or self-care (01) | DRG 772 ==
LOC: YASAS 09:56 → Y3E 15:06
PROVIDERS: ADMIT Neuromusculoskeletal Medicine & OMM; ATTEND Neuromusculoskeletal Medicine & OMM
PROC: HZ42ZZZ Group Counseling for Substance Abuse Treatment, Cognitive-Behavioral (ICD-10-PCS; principal; 2019-10-21)
DX: F10.20 Alcohol dependence, uncomplicated (principal); F12.20 Cannabis dependence, uncomplicated; F17.210 Nicotine dependence, cigarettes, uncomplicated; F43.10 Post-traumatic stress disorder, unspecified; F25.9 Schizoaffective disorder, unspecified; F19.24 Other psychoactive substance dependence with psychoactive substance-induced mood disorder; F19.282 Other psychoactive substance dependence with psychoactive substance-induced sleep disorder; E11.9 Type 2 diabetes mellitus without complications; Z88.0 Allergy status to penicillin; Z88.8 Allergy status to other drugs, medicaments and biological substances; Z91.013 Allergy to seafood; Z91.018 Allergy to other foods; Z79.4 Long term (current) use of insulin; Z62.810 Personal history of physical and sexual abuse in childhood
CPT/HCPCS: 36415; 80053; 81003; 81025; 82962; 85027; 86593

== ENCOUNTER 2019-10-29 17:06 | Inpatient (IN) | payer OTHER ==
--- NOTE | 2019-10-29 18:32 | PDOC ---
History of Present Illness - General Chief Complaint: Blood Sugar Problem Stated Complaint: HYPERGLYCEMIA History Source: Patient Exam Limitations: No Limitations - History of Present Illness Initial Comments: 10/29/19 18:28 PCP: Dr. Lambert at [facility] HPI: 34yo F PMH IDDM, alcohol and cocaine abuse, presenting with hyperglycemia in setting of medication noncompliance. Patient signed out of [facility] yesterday over a disagreement regarding her blood sugar management. Reports she is prescribed Novolog and recently was changed from Levemir to another long- acting medication due to insurance. Has not eaten since 10:30 AM. Took 30 of Novolog last night and states that she has had no long-acting for 2 days. Has not been checking BGM at home, but reports that she does have test strips. Nausea and vomiting yesterday, since resolved. Endorsing blurry vision, stomach pains, headache, increased thirst, and increased volume and frequency of urination for which she called 911 - reporting they told her her BGM was 400 when she was picked up. Has been in DKA before. Denies chest pain, SOB, cough, fevers, chills, recent illness, numbness/ tingling. All: Bupropion, PCN Meds: Levemir and Novolog, Trazodone, Abilify, Lexapro PMH: DM PSH: 3x , L ear cosmetic procedure SHx: Alcohol and Cocaine abuse Past History - Travel Traveled outside of the country in the last 30 days: No Close contact w/someone who was outside of country & ill: No - Past Medical History Allergies/Adverse Reactions: Allergies Allergy/AdvReac Type Severity Reaction Status Date / Time bupropion [From Wellbutrin] Allergy Rash Verified 10/29/19 17:20 Penicillins Allergy Rash Verified 10/29/19 17:20 Pork/Porcine Containing Allergy Rash Verified 10/29/19 17:20 Products shellfish derived Allergy Rash Verified 10/29/19 17:20 Home Medications: Ambulatory Orders Insulin (Novolog) [Novolog Vial] 20 units SQ TID 10/21/19 Insulin Detemir [Levemir Flextouch] 40 unit SQ HS #14 insuln.pen 10/27/19 Insulin Detemir [Levemir Flextouch] 50 unit SQ DAILY #14 insuln.pen 10/27/19 Asthma: No Cardiac Disorders: No COPD: No Diabetes: Yes (Pt's BGM 368mg/dl) GI Disorders: No Disorders: No HTN: No Kidney Stones: No Seizures: No - Surgical History Abdominal Surgery: No Appendectomy: No Cardiac Surgery: No Cholecystectomy: No Lung Surgery: No Neurologic Surgery: No Orthopedic Surgery: Yes - Psycho Social/Smoking Cessation Hx Smoking History: Never smoked Have you smoked in the past 12 months: Yes Number of Cigarettes Smoked Daily: 10 'Breaking Loose' booklet given: 10/21/19 Hx Alcohol Use: No Drug/Substance Use Hx: No Hx Substance Use Treatment: Yes Review of Systems - Review of Systems Able to Perform ROS?: Yes Is the patient limited Tunisian proficient: Yes Constitutional: No: Chills, Diaphoresis, Fever, Weakness HEENTM: No: Recent change in vision, Nose Congestion, Throat Pain Respiratory: No: Cough, Orthopnea, Shortness of Breath, Wheezing Cardiac (ROS): No: Chest Pain, Irregular Heart Rate, Lightheadedness, Palpitations, Syncope, Chest Tightness ABD/GI: Yes: Nausea, Vomiting. No: Constipated, Diarrhea : Yes: Frequency, Urgency. No: Burning, Dysuria, Discharge Musculoskeletal: No: Back Pain, Muscle Pain, Muscle Weakness Integumentary: No: Bruising, Change in Color Neurological: Yes: Headache. No: Numbness, Tingling, Weakness Endocrine: Yes: Increased Thirst, Increased Urine Hematologic/Lymphatic: No: Anemia, Blood Clots, Easy Bleeding All Other Systems: Reviewed and Negative *Physical Exam - Vital Signs Last Vital Signs Temp Pulse Resp BP Pulse Ox 98.1 F 100 H 18 107/60 96 10/29/19 17:21 10/29/19 17:21 10/29/19 17:21 10/29/19 17:21 10/29/19 17:21 - Physical Exam 10/29/19 19:09 Vitals reviewed, AFVSS, borderline tachycardia GEN: Well appearing, appears stated age, NAD, comfortable. AAOx3. HEENT: NCAT, EOMI, PERRL. Sclera anicteric, non-injected. No facial asymmetry. Moist mucous membranes. Normal voice. Trachea midline. CV: RRR, S1/S2, no murmurs / rubs / gallops appreciated. LUNG: CTAB, normal work of breathing. No wheezes, rales, rhonchi. No cough. Speaking full sentences. GI: Soft, NTND, +BS, no guarding, no rebound. No masses. Neg CVAT b/l. EXTREMITIES: 2+ distal pulses. No LE edema. No obvious deformities of all extremities. SKIN: Warm, dry, no rashes appreciated, non-jaundiced. PSYCH: Normal mood and affect. Cooperative and appropriate. NEURO: CN grossly intact. Moving all extremities well. Normal strength and sensation grossly. HEENT: positive: Thrush ED Treatment Course - LABORATORY CBC & Chemistry Diagram: 10/29/19 18:50 10/29/19 18:50 Medical Decision Making - Medical Decision Making 10/29/19 19:04 34yo F PMH IDDM, alcohol and cocaine abuse, presenting with hyperglycemia in setting of medication noncompliance. History concerning for urinary frequency, abdominal pain, vision changes. Exam wnl with stable vitals. Concerning for hyperglycemia r/o DKA vs HHS. Patient without insulin at home. - CBC, CMP, Beta-hydroxybutarate - UA, UCx - BGM >600 - Lactic acid - VBG - Serum Osms - 1L IVF - Voicemail left at PCP Office 10/29/19 19:39 - 3+ Urine Glucose, +Ketones - No leukocytosis or anemia 10/29/19 20:17 - Beta-hydroxybutarate 20.3 10/29/19 20:27 - Lactic acid 2.3 - K 5.3 - Na 125 (Corrected Na is 136 ) - Chloride 87 - Cr 1.2 - No anion gap (10) - Glucose 798 - Additional liter NS ordered Dispo: Admit Med/Surg Serum Osms 318 Calculated 300 Osm Gap 18 10/29/19 20:48 - Starting Insulin GGT at 9 U/hr 10/29/19 21:22 - Patient admitted med/surg under Dr. Murphy - Third liter of NS ordered - Repeat BMP ordered - Plan to d/c Insulin ggt before sending to the floor Discharge - Discharge Information Problems reviewed: Yes Clinical Impression/Diagnosis: Hyperglycemia due to type 1 diabetes mellitus Diabetes mellitus Qualifiers: Diabetes mellitus type: type 1 Diabetes mellitus complication status: with hyperglycemia Qualified Code(s): E10.65 - Type 1 diabetes mellitus with hyperglycemia Condition: Guarded - Admission Yes - Follow up/Referral - Patient Discharge Instructions - Post Discharge Activity
[2019-10-29] MEDS ORDERED: SODIUM CHLORIDE 1,000 ML IV STA (18:37)
[2019-10-29 19:25] LABS: BASO % 0.8 % (0-2.0); EOS % 0.6 % (0-4.5); HEMATOCRIT 37.4 % (32.4-45.2); HEMOGLOBIN 12.1 GM/dL (10.7-15.3); LYMPH % 29.4 % (8-40); MCH 25.1 pg (25.7-33.7); MCHC 32.3 g/dl (32.0-36.0); MEAN CELL VOLUME 77.8 fl (80-96); MEAN PLT VOLUME 10.2 fl (7.5-11.1); MONO % 6.3 % (3.8-10.2); NEUT % 62.9 % (42.8-82.8); PLATELET COUNT 261 K/MM3 (134-434); RDW 19.9 % (11.6-15.6); WHITE BLOOD COUNT 7.5 K/mm3 (4.0-10.0)
[2019-10-29 19:36] LABS: PH,URINE 6.5 (5.0-8.0); URINE APPEARANCE CLEAR; URINE BILIRUBIN NEGATIVE (NEGATIVE); URINE COLOR YELLOW; URINE GLUCOSE (UA) 3+ (NEGATIVE); URINE KETONE TRACE (NEGATIVE); URINE LEUK ESTERASE NEGATIVE (NEGATIVE); URINE NITRITE NEGATIVE (NEGATIVE); URINE PROTEIN NEGATIVE (NEGATIVE); URINE UROBILINOGEN 0.2 mg/dL (0.2-1.0)
--- NOTE | 2019-10-29 19:52 | PDOC ---
Documentation entered by Madeleine Griffith SCRIBE, acting as scribe for Nayely Aleman MD. Nayely Aleman MD: This documentation has been prepared by the aliviaibeNacho Lincy, SCRIBE, under my direction and personally reviewed by me in its entirety. I confirm that the documentation accurately reflects all work, treatment, procedures, and medical decision making performed by me. Attending Attestation - Resident Resident Name: LucioEpifanio caceres - ED Attending Attestation I have performed the following: I have examined & evaluated the patient, The case was reviewed & discussed with the resident, I agree w/resident's findings & plan, Exceptions are as noted - HPI HPI: 10/29/19 19:50 34-year-old female history of cocaine alcohol abuse insulin-dependent diabetes here today complaining of high sugars. Patient states she was recently admitted to detox at [facility] at that time appears there was some confusion regarding her meds her sugar was 110 when she left. Since then the patient states there was confusion at the pharmacy over her Levemir says that it was substituted via her insurance so she was unable to get her Levemir has not been taking it for 2 days. Normally she takes 50 units in the a.m. and 40 units at night. Has been having polyuria polydipsia denies any fevers chills did have nausea and vomiting today x2. Denies any recent drug use since her discharge from [facility] no other current complaints - Physicial Exam PE: 10/29/19 19:51 Patient is awake alert no acute distress heart is regular 30 murmurs rubs or gallops lungs are clear bilaterally heart is regular abdomen is soft and nontender extremities are warm well perfused there is no noted edema patient is awake alert and oriented x3 - Medical Decision Making 10/29/19 19:52 34-year-old female history of insulin-dependent diabetes off her meds for 2 days here today complaining of nausea vomiting polyuria polydipsia. Sugar was found to be over 500 differential includes DKA, hyperglycemia, hyperosmolar nonketotic hyperglycemia. Plan CBC CMP beta hydroxybutyrate IV hydration UA UCG 10/29/19 20:30 pt with high sugar 700. no dka. psuedohypnatremial will admit to medicine. given second liter NS. corrrected na for hyperglycemia is 136. 10/29/19 20:48 pt bohb elevated, normal anion gap however. will start insulin drip at 9 units / hr. given ns bolus. will require admission. 10/30/19 00:40 pt with improving sugar, given 3 L NS bolus. however noted to have increasing lactic acidosis. will swab for flu. d/w ICU for admission.
[2019-10-29 20:19] LABS: BILIRUBIN,TOTAL 0.4 mg/dL (0.2-1); BLOOD UREA NITROGEN 16.9 mg/dL (7-18); CALCIUM 9.6 mg/dL (8.5-10.1); CREATININE 1.2 mg/dL (0.55-1.3); POTASSIUM 5.3 mmol/L (3.5-5.1); TOT PROT 7.5 g/dl (6.4-8.2)
[2019-10-29] MEDS ORDERED: SODIUM CHLORIDE 0.9% 500 ML INFUS.BAG IV ONE ×2 (20:30→21:20)
[2019-10-29] MEDS ORDERED: INSULIN REGULAR HUMAN 100 UNITS/ML *VIAL IVPUSH ONE (20:46)
[2019-10-29] MEDS ORDERED: INSULIN REGULAR 100 UNITS in SODIUM CHLORIDE 99 ML IVPB SCH (21:00)
[2019-10-29 21:39] LABS: VENOUS PC02 49.1 mmHg (38-52); VENOUS PH 7.33 (7.31-7.41)
[2019-10-29 21:40] LABS: VENOUS PO2 < 49 mmHg (28-48)
--- NOTE | 2019-10-29 21:58 | PN ---
Teaching Attending Note Name of Resident: Samuel Cruz ATTENDING PHYSICIAN STATEMENT I saw and evaluated the patient. I reviewed the resident's note and discussed the case with the resident. I agree with the resident's findings and plan as documented. SUBJECTIVE: Patient is a 34 year old woman with a PMH of IDDM, Penicillin allergy, Polysubstance abuse (alcohol, cocaine) and Tobacco use presenting with hyperglycemia after not taking insulin for 2 days. Patient signed out of [facility] yesterday over a disagreement regarding her blood sugar management. Reports she is prescribed Novolog and recently was changed from Levemir to another long-acting medication due to insurance issues. Has not eaten since 10: 30 AM. Took 30 u of Novolog last night and states that she has had no long- acting agent for 2 days. Has not been checking BGM at home, but reports that she does have test strips. Nausea and vomiting yesterday, since resolved. Has blurry vision, stomach pains, headache, increased thirst, and increased volume and frequency of urination for which she called 911 - reporting they told her her BGM was 400 when she was picked up. Has had DKA before. Denies chest pain, SOB, cough, fevers, chills, recent illness, numbness/tingling. OBJECTIVE: Alert Vital Signs Period Temp Pulse Resp BP Sys/Harmon Pulse Ox Last 24 Hr 98.1 F 100 18 107/60 96 HEENT: No Jaundice, eye redness or discharge, PERRLA, EOMI. Normocephalic, atraumatic. External ears are normal and hearing is grossly intact. No nasal discharge. Neck: Supple, nontender. No palpable adenopathy or thyromegaly. No JVD Chest: Good effort. Clear to auscultation and percussion. Heart: Regular. No S3, rub or murmur Abdomen: Not distended, soft, nontender and no HSM. No rebound or guarding. Normal bowel sounds. Ext: Peripheral pulses intact. No leg edema. Skin: Warm and dry. No petechiae, rash or ecchymosis. Neuro: Alert. Oriented x3. CN 2-12 grossly intact. Sensation grossly intact in all four extremities and DTR are symmetric. Psych: Appropriate mood and affect. Good insight. Current Medications Generic Name Dose Route Start Last Admin Trade Name Freq PRN Reason Stop Dose Admin Insulin Human Regular 100 100 mls @ 9 mls/hr 10/29/19 21:00 10/29/19 21:20 units/ Sodium Chloride IVPB 9 units/hr TITR SHAHID 9 mls/hr Administration Protocol 9 UNITS/HR Home Medications Medication Instructions Recorded Insulin (Novolog) [Novolog Vial] 20 units SQ TID 10/21/19 Insulin Detemir [Levemir Flextouch] 40 unit SQ HS #14 insuln.pen 10/27/19 Insulin Detemir [Levemir Flextouch] 50 unit SQ DAILY #14 insuln.pen 10/27/19 Abnormal Lab Results 10/29/19 10/29/19 10/29/19 18:50 18:50 18:50 MCV 77.8 L MCH 25.1 L RDW 19.9 H POC VBG pO2 Sodium 125 L Potassium 5.3 H Chloride 87 L Random Glucose 798 H* Serum Osmolality Lactic Acid Alkaline Phosphatase 122 H Beta-Hydroxybutyrate 20.3 H Urine Glucose (UA) Urine Ketones 10/29/19 10/29/19 10/29/19 19:00 19:25 19:25 MCV MCH RDW POC VBG pO2 Sodium Potassium Chloride Random Glucose Serum Osmolality 318 H Lactic Acid 2.3 H* Alkaline Phosphatase Beta-Hydroxybutyrate Urine Glucose (UA) 3+ H Urine Ketones Trace H 10/29/19 21:25 MCV MCH RDW POC VBG pO2 < 49 H Sodium Potassium Chloride Random Glucose Serum Osmolality Lactic Acid Alkaline Phosphatase Beta-Hydroxybutyrate Urine Glucose (UA) Urine Ketones ASSESSMENT AND PLAN: 1. Hyperglycemic with Ketosis - Likely due to nonadherence. No obvious associated infection. CXR pending. Got Regular insulin 10 units IV bolus in the ER and is being started on IV insulin drip. Will continue IV NS, monitor and replete K+. Electrolyte derangements and lactic acidosis likely sequelae of hyperglycemia and lack of insulin. Monitor BMP and implement sliding scale insulin regimen. Provide comprehensive diabetes care with patient teaching and counseling about the importance of adherence to prescribed diabetes regimen, euglycemia, eye care and foot care. 2. Tobacco Use Counseled on risks associated with tobacco use. We will provide patient all the necessary assistance to facilitate smoking cessation and prescribe Nicotine patch. 3. Obesity Counseled on the risks associated with obesity. Will provide patient all the necessary assistance, counseling and positive reinforcement to facilitate weight loss. Consult offset press operator apprentice. 4. Polysubstance/Alcohol abuse - Monitor closely for drug withdrawal. Implement [facility] alcohol withdrawal protocol and do neurochecks. Implement seizure, fall and aspiration precautions. Treat with thiamine and folic acid and monitor electrolytes (Ca,Mg,K,P). Counseled patient about abstaining from illicit drug/ alcohol. Will consult info specialist and refer to drug/alcohol detox upon discharge. 5. DVT prophylaxis - Lovenox 40 mg SQ q 24 hours. 6. Advance directives - Full code
[2019-10-30 00:24] LABS: BLOOD UREA NITROGEN 12.9 mg/dL (7-18); CALCIUM 8.6 mg/dL (8.5-10.1); CREATININE 1.1 mg/dL (0.55-1.3)
[2019-10-30] MEDS ORDERED: SODIUM CHLORIDE 0.45% 1,000 ML with POTASSIUM CHLORIDE 20 MEQ IVPB SCH (00:47)
--- NOTE | 2019-10-30 00:48 | HP ---
CHIEF COMPLAINT: nausea, vomiting PCP: HISTORY OF PRESENT ILLNESS: Patient is a 34 year old female with history of polsysubstance abuse (cocaine, alcohol, marijuana), insulin-dependent diabetes presents with complaint of nausea, vomiting. Patient was recently in rehab at [email or web address]], however signed out on 10/27 as she felt her diabetes was not being treated appropriately ; patient states that she last received her Insulin two days ago. Patient admits difficulties in obtaining her insulin from her pharmacy, resulting in two days of missed doses (takes 50 units in AM, 40 units in PM). Endorses one episode of non bloody, nonbilious vomiting, polyuria, plydipsia. Denies subjective fevers, chills. 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 ER course was notable for: (1) Glucose 798. Beta Hydroxybutyric acid 20.2. However anion gap 10, carbon dioxide 28. VBG pH 7.33. (2) Hyponatremia to 125 (corrected Na 136). (3) Recent Travel: Denies PAST MEDICAL HISTORY: polsysubstance abuse (cocaine, alcohol, marijuana), insulin-dependent diabetes PAST SURGICAL HISTORY: section (2201, 2004, 2014) Social History: Currently living in group home. Independent in activities daily living. Smoking: Admits 1/2 pack per day for past 20 years Alcohol: Admits drinking 2 wine coolers/ beers, and two shots of liquor daily ( admits last drink today) Drugs: Smokes 2 blunts, marijuana, K2 daily Allergies bupropion [From Wellbutrin] Allergy (Verified 10/29/19 17:20) Rash Penicillins Allergy (Verified 10/29/19 17:20) Rash Pork/Porcine Containing Products Allergy (Verified 10/29/19 17:20) Rash shellfish derived Allergy (Verified 10/29/19 17:20) Rash HOME MEDICATIONS: Home Medications Medication Instructions Recorded Insulin (Novolog) [Novolog Vial] 20 units SQ TID 10/21/19 Insulin Detemir [Levemir Flextouch] 40 unit SQ HS #14 insuln.pen 10/27/19 Insulin Detemir [Levemir Flextouch] 50 unit SQ DAILY #14 insuln.pen 10/27/19 REVIEW OF SYSTEMS CONSTITUTIONAL: Absent: fever, chills, diaphoresis, generalized weakness, malaise, loss of appetite, weight change HEENT: Absent: rhinorrhea, nasal congestion, throat pain, throat swelling, difficulty swallowing, mouth swelling, ear pain, eye pain, visual changes CARDIOVASCULAR: Absent: chest pain, syncope, palpitations, irregular heart rate, lightheadedness , peripheral edema RESPIRATORY: Absent: cough, shortness of breath, dyspnea with exertion, orthopnea, wheezing, stridor, hemoptysis GASTROINTESTINAL: Admits: nausea, vomiting. Absent: abdominal distension, diarrhea, constipation, melena, hematochezia GENITOURINARY: Absent: dysuria, frequency, urgency, hesitancy, hematuria, flank pain, genital pain MUSCULOSKELETAL: Absent: myalgia, arthralgia, joint swelling, back pain, neck pain SKIN: Absent: rash, itching, pallor HEMATOLOGIC/IMMUNOLOGIC: Absent: easy bleeding, easy bruising, lymphadenopathy, frequent infections ENDOCRINE: Absent: unexplained weight gain, unexplained weight loss, heat intolerance, cold intolerance NEUROLOGIC: Absent: headache, focal weakness or paresthesias, dizziness, unsteady gait, seizure, mental status changes, bladder or bowel incontinence PSYCHIATRIC: Absent: anxiety, depression, suicidal or homicidal ideation, hallucinations. PHYSICAL EXAMINATION Vital Signs - 24 hr 10/29/19 17:21 Temperature 98.1 F Pulse Rate 100 H Respiratory 18 Rate Blood Pressure 107/60 O2 Sat by Pulse 96 Oximetry (%) GENERAL: Awake, alert, and fully oriented, in no acute distress. HEAD: Normal with no signs of trauma. EYES: Pupils equal, round and reactive to light, extraocular movements intact, sclera anicteric, conjunctiva clear. No lid lag. EARS, NOSE, THROAT: Ears normal, nares patent, oropharynx clear without exudates. Dry mucous membranes. NECK: Normal range of motion, supple without lymphadenopathy, JVD, or masses. LUNGS: Breath sounds equal, clear to auscultation bilaterally. No wheezes, and no crackles. No accessory muscle use. HEART: Regular rate and rhythm, normal S1 and S2 without murmur, rub or gallop. ABDOMEN: Soft, nontender, not distended, normoactive bowel sounds, no guarding, no rebound, no masses. No hepatomegaly or splenomegaly. MUSCULOSKELETAL: Normal range of motion at all joints. No bony deformities or tenderness. No CVA tenderness. UPPER EXTREMITIES: 2+ pulses, warm, well-perfused. No cyanosis. No clubbing. No peripheral edema. LOWER EXTREMITIES: 2+ pulses, warm, well-perfused. No calf tenderness. No peripheral edema. NEUROLOGICAL: Cranial nerves II-XII intact. Normal speech. Normal gait. PSYCHIATRIC: Cooperative. Good eye contact. Appropriate mood and affect. SKIN: Warm, dry, normal turgor, no rashes or lesions noted, normal capillary refill. Laboratory Results - last 24 hr 10/29/19 10/29/19 10/29/19 18:43 18:50 18:50 WBC 7.5 RBC 4.80 Hgb 12.1 Hct 37.4 MCV 77.8 L MCH 25.1 L MCHC 32.3 RDW 19.9 H Plt Count 261 D MPV 10.2 Absolute Neuts (auto) 4.7 Neutrophils % 62.9 Lymphocytes % 29.4 Monocytes % 6.3 Eosinophils % 0.6 Basophils % 0.8 Nucleated RBC % 0 VBG pH POC VBG pCO2 POC VBG pO2 VBG HCO3 VBG O2 Sat (Mik) VBG Base Excess Sodium Potassium Chloride Carbon Dioxide Anion Gap BUN Creatinine Est GFR (CKD-EPI)AfAm Est GFR (CKD-EPI)NonAf POC Glucometer > 600 Random Glucose Serum Osmolality Lactic Acid Calcium Total Bilirubin AST ALT Alkaline Phosphatase Total Protein Albumin Beta-Hydroxybutyrate 20.3 H Beta HCG, Quant Urine Color Urine Appearance Urine pH Ur Specific [place] Urine Protein Urine Glucose (UA) Urine Ketones Urine Blood Urine Nitrite Urine Bilirubin Urine Urobilinogen Ur Leukocyte Esterase 10/29/19 10/29/19 10/29/19 18:50 19:00 19:25 WBC RBC Hgb Hct MCV MCH MCHC RDW Plt Count MPV Absolute Neuts (auto) Neutrophils % Lymphocytes % Monocytes % Eosinophils % Basophils % Nucleated RBC % VBG pH POC VBG pCO2 POC VBG pO2 VBG HCO3 VBG O2 Sat (Mik) VBG Base Excess Sodium 125 L Potassium 5.3 H Chloride 87 L Carbon Dioxide 28 Anion Gap 10 BUN 16.9 Creatinine 1.2 Est GFR (CKD-EPI)AfAm 67.33 Est GFR (CKD-EPI)NonAf 58.09 POC Glucometer Random Glucose 798 H* Serum Osmolality Lactic Acid 2.3 H* Calcium 9.6 Total Bilirubin 0.4 AST 21 ALT 36 Alkaline Phosphatase 122 H Total Protein 7.5 Albumin 4.0 Beta-Hydroxybutyrate Beta HCG, Quant Urine Color Yellow Urine Appearance Clear Urine pH 6.5 Ur Specific [place] 1.027 Urine Protein Negative Urine Glucose (UA) 3+ H Urine Ketones Trace H Urine Blood Negative Urine Nitrite Negative Urine Bilirubin Negative Urine Urobilinogen 0.2 Ur Leukocyte Esterase Negative 10/29/19 10/29/19 10/29/19 19:25 21:17 21:25 WBC RBC Hgb Hct MCV MCH MCHC RDW Plt Count MPV Absolute Neuts (auto) Neutrophils % Lymphocytes % Monocytes % Eosinophils % Basophils % Nucleated RBC % VBG pH 7.33 POC VBG pCO2 49.1 POC VBG pO2 < 49 H VBG HCO3 25.3 VBG O2 Sat (Mik) 70.8 VBG Base Excess -0.3 Sodium Potassium Chloride Carbon Dioxide Anion Gap BUN Creatinine Est GFR (CKD-EPI)AfAm Est GFR (CKD-EPI)NonAf POC Glucometer > 600 Random Glucose Serum Osmolality 318 H Lactic Acid Calcium Total Bilirubin AST ALT Alkaline Phosphatase Total Protein Albumin Beta-Hydroxybutyrate Beta HCG, Quant Urine Color Urine Appearance Urine pH Ur Specific [place] Urine Protein Urine Glucose (UA) Urine Ketones Urine Blood Urine Nitrite Urine Bilirubin Urine Urobilinogen Ur Leukocyte Esterase 10/29/19 10/29/19 10/29/19 22:58 22:58 22:58 WBC RBC Hgb Hct MCV MCH MCHC RDW Plt Count MPV Absolute Neuts (auto) Neutrophils % Lymphocytes % Monocytes % Eosinophils % Basophils % Nucleated RBC % VBG pH POC VBG pCO2 POC VBG pO2 VBG HCO3 VBG O2 Sat (Mik) VBG Base Excess Sodium 133 L Potassium 4.0 Chloride 96 L Carbon Dioxide 26 Anion Gap 11 BUN 12.9 Creatinine 1.1 Est GFR (CKD-EPI)AfAm 74.80 Est GFR (CKD-EPI)NonAf 64.54 POC Glucometer Random Glucose Serum Osmolality Lactic Acid 3.4 H* Calcium 8.6 Total Bilirubin AST ALT Alkaline Phosphatase Total Protein Albumin Beta-Hydroxybutyrate Beta HCG, Quant < 1.0 Urine Color Urine Appearance Urine pH Ur Specific [place] Urine Protein Urine Glucose (UA) Urine Ketones Urine Blood Urine Nitrite Urine Bilirubin Urine Urobilinogen Ur Leukocyte Esterase ASSESSMENT/PLAN: Patient is a 34 year old female with history of polsysubstance abuse (cocaine, alcohol, marijuana), insulin-dependent diabetes presents with complaint of nausea, vomiting. Hyperglycemia -Glucose 798. Beta Hydroxybutyric acid 20.2. However anion gap 10, carbon dioxide 28. VBG pH 7.33. Hyponatremia to 125 (corrected Na 136). -Patient started on insulin drip in ED (did not receive any prior insulin bolus ). -IV normal saline with 20meq KCL at 125mL/ hour -Follow repeat BMP -Will need to reinstate home insulin regimen (50units AM, 40 units PM), in addition to sliding scale. -Diabetic diet ____ Blood glucose over-corrected to 63mg/dL. Beta Hydroxy Butyrate decreased to 1.3. Anion gap remains closed at 5. D5 0.45% NS initiated. Initiate insulin sliding scale, BGM Q4 hours. Once patent tolerating oral intake, discontinue Dextrose fluids, and initiate long acting insulin coverage. Alcohol use disorder -Currently not in withdrawal. CIWA 1. If signs of withdrawal, initiate Librium protocol. -Fall precaution -Thiamine, Folate, multivitamin -Seizure precautions Anxiety, depression -Reinstate Aripipraole, Escitalopram (initiated in [facility]) FEN -IV normal saline with 20meq KCL at 125mL/ hour -Hyponatremia (corrected Na 136) -Diabetic diet Prophylaxis -Lovenox Disposition -Admit to Medical- Surgical floor Visit type - Emergency Visit Emergency Visit: Yes ED Registration Date: 10/29/19 Care time: The patient presented to the Emergency Department on the above date and was hospitalized for further evaluation of their emergent condition. - New Patient This patient is new to me today: Yes Date on this admission: 10/29/19 - Critical Care Critical Care patient: No ATTENDING PHYSICIAN STATEMENT I saw and evaluated the patient. I reviewed the resident's note and discussed the case with the resident. I agree with the resident's findings and plan as documented. SUBJECTIVE: OBJECTIVE: ASSESSMENT AND PLAN:
[2019-10-30 00:59] LABS: ALBUMIN 3.3 g/dl (3.4-5.0); BILIRUBIN,TOTAL 0.2 mg/dL (0.2-1); TOT PROT 6.2 g/dl (6.4-8.2)
[2019-10-30] MEDS ORDERED: SODIUM CHLORIDE 1,000 ML with POTASSIUM CHLORIDE 20 MEQ IVPB SCH (01:45)
[2019-10-30] MEDS ORDERED: THIAMINE HCL 100 MG TABLET (FP) ONE (03:06)
[2019-10-30] MEDS: THIAMINE HCL 100 MG TABLET (FP) PO SCH ×3 (03:09→23:41)
--- NOTE | 2019-10-30 03:20 | CONSULT ---
Consultation: REQUESTING PROVIDER: Dr. Valdes CONSULT REQUEST: We have been asked to medically evaluate this patient for ICU management HISTORY OF PRESENT ILLNESS: 34F PMH IDDM, PSA (cocaine, alcohol, marijuana, K2) who presents with complaints of nausea and vomiting. She was recently in [facility] for rehab for 5 days from 10/21/19. She complains that she was not receiving her home doses of Insulin while at the facility. She normally takes 50 levermir in the morning when she wakes up, 40 units in the evening when she sleeps, and roughly 15 units before her meals of the day. She normally measures her glucose levels daily and the fingersticks are within 200-300. She has not taken her regular doses of insulin for the prior two days. She endorses normal appetite, and episode of nausea and NBNB vomiting today. She denies any hematochezia, diarrhea, sick contacts, subjective fevers and chills. In the emergency department she was found to be hyperglycemic to 798, was started on NS and Insulin drip. REVIEW OF SYSTEMS: CONSTITUTIONAL: Absent: fever, chills, diaphoresis, generalized weakness, malaise, loss of appetite, weight change HEENT: Absent: rhinorrhea, nasal congestion, throat pain, throat swelling, difficulty swallowing, mouth swelling, ear pain, eye pain, visual changes CARDIOVASCULAR: Absent: chest pain, syncope, palpitations, irregular heart rate, lightheadedness, peripheral edema RESPIRATORY: Absent: cough, shortness of breath, dyspnea with exertion, orthopnea, wheezing, stridor, hemoptysis GASTROINTESTINAL: Present: Nausea, and vomiting Absent: abdominal pain, abdominal distension,diarrhea, constipation, melena, hematochezia GENITOURINARY: Absent: dysuria, frequency, urgency, hesitancy, hematuria, flank pain, genital pain MUSCULOSKELETAL: Absent: myalgia, arthralgia, joint swelling, back pain, neck pain SKIN: Absent: rash, itching, pallor HEMATOLOGIC/IMMUNOLOGIC: Absent: easy bleeding, easy bruising, lymphadenopathy, frequent infections ENDOCRINE: Absent: unexplained weight gain, unexplained weight loss, heat intolerance, cold intolerance NEUROLOGIC: Absent: headache, focal weakness or paresthesias, dizziness, unsteady gait, seizure, mental status changes, bladder or bowel incontinence PSYCHIATRIC: Absent: anxiety, depression, suicidal or homicidal ideation, hallucinations. PHYSICAL EXAMINATION Vital Signs - 24 hr 10/29/19 10/29/19 17:21 19:40 Temperature 98.1 F Pulse Rate 100 H Respiratory 18 Rate Blood Pressure 107/60 O2 Sat by Pulse 96 97 Oximetry (%) GENERAL: Awake, alert, and fully oriented, in no acute distress. HEAD: Normal with no signs of trauma. EYES: Pupils equal, round and reactive to light, extraocular movements intact, sclera anicteric, conjunctiva clear. No lid lag. EARS, NOSE, THROAT: Ears normal, nares patent, oropharynx clear without exudates.. NECK: Normal range of motion, supple without lymphadenopathy, JVD, or masses. LUNGS: Breath sounds equal, clear to auscultation bilaterally. No wheezes, and no crackles. HEART: Regular rate and rhythm, normal S1 and S2 without murmur, rub or gallop. ABDOMEN: Soft, nontender, not distended, normoactive bowel sounds, no guarding, no rebound, no masses. MUSCULOSKELETAL: Normal range of motion at all joints. No bony deformities or tenderness. No CVA tenderness. UPPER EXTREMITIES: 2+ pulses, warm, well-perfused. No cyanosis. No clubbing. Cap refill <2 seconds. No peripheral edema. LOWER EXTREMITIES: 2+ pulses, warm, well-perfused. No calf tenderness. No peripheral edema. NEUROLOGICAL: Cranial nerves II-XII intact. Normal speech. Normal gait. 5/5 strength in upper and lower extremities b/l. PSYCHIATRIC: Cooperative. Good eye contact. Appropriate mood and affect. SKIN: Warm, dry, normal turgor, no rashes or lesions noted. Laboratory Results - last 24 hr 10/29/19 10/29/19 10/29/19 18:43 18:50 18:50 WBC 7.5 RBC 4.80 Hgb 12.1 Hct 37.4 MCV 77.8 L MCH 25.1 L MCHC 32.3 RDW 19.9 H Plt Count 261 D MPV 10.2 Absolute Neuts (auto) 4.7 Neutrophils % 62.9 Lymphocytes % 29.4 Monocytes % 6.3 Eosinophils % 0.6 Basophils % 0.8 Nucleated RBC % 0 VBG pH POC VBG pCO2 POC VBG pO2 VBG HCO3 VBG O2 Sat (Mik) VBG Base Excess Sodium Potassium Chloride Carbon Dioxide Anion Gap BUN Creatinine Est GFR (CKD-EPI)AfAm Est GFR (CKD-EPI)NonAf POC Glucometer > 600 Random Glucose Serum Osmolality Lactic Acid Calcium Total Bilirubin AST ALT Alkaline Phosphatase Total Protein Albumin Beta-Hydroxybutyrate 20.3 H Beta HCG, Quant Urine Color Urine Appearance Urine pH Ur Specific [place] Urine Protein Urine Glucose (UA) Urine Ketones Urine Blood Urine Nitrite Urine Bilirubin Urine Urobilinogen Ur Leukocyte Esterase Influenza A (Rapid) Influenza B (Rapid) 10/29/19 10/29/19 10/29/19 18:50 19:00 19:25 WBC RBC Hgb Hct MCV MCH MCHC RDW Plt Count MPV Absolute Neuts (auto) Neutrophils % Lymphocytes % Monocytes % Eosinophils % Basophils % Nucleated RBC % VBG pH POC VBG pCO2 POC VBG pO2 VBG HCO3 VBG O2 Sat (Mik) VBG Base Excess Sodium 125 L Potassium 5.3 H Chloride 87 L Carbon Dioxide 28 Anion Gap 10 BUN 16.9 Creatinine 1.2 Est GFR (CKD-EPI)AfAm 67.33 Est GFR (CKD-EPI)NonAf 58.09 POC Glucometer Random Glucose 798 H* Serum Osmolality Lactic Acid 2.3 H* Calcium 9.6 Total Bilirubin 0.4 AST 21 ALT 36 Alkaline Phosphatase 122 H Total Protein 7.5 Albumin 4.0 Beta-Hydroxybutyrate Beta HCG, Quant Urine Color Yellow Urine Appearance Clear Urine pH 6.5 Ur Specific [place] 1.027 Urine Protein Negative Urine Glucose (UA) 3+ H Urine Ketones Trace H Urine Blood Negative Urine Nitrite Negative Urine Bilirubin Negative Urine Urobilinogen 0.2 Ur Leukocyte Esterase Negative Influenza A (Rapid) Influenza B (Rapid) 10/29/19 10/29/19 10/29/19 19:25 21:17 21:25 WBC RBC Hgb Hct MCV MCH MCHC RDW Plt Count MPV Absolute Neuts (auto) Neutrophils % Lymphocytes % Monocytes % Eosinophils % Basophils % Nucleated RBC % VBG pH 7.33 POC VBG pCO2 49.1 POC VBG pO2 < 49 H VBG HCO3 25.3 VBG O2 Sat (Mik) 70.8 VBG Base Excess -0.3 Sodium Potassium Chloride Carbon Dioxide Anion Gap BUN Creatinine Est GFR (CKD-EPI)AfAm Est GFR (CKD-EPI)NonAf POC Glucometer > 600 Random Glucose Serum Osmolality 318 H Lactic Acid Calcium Total Bilirubin AST ALT Alkaline Phosphatase Total Protein Albumin Beta-Hydroxybutyrate Beta HCG, Quant Urine Color Urine Appearance Urine pH Ur Specific [place] Urine Protein Urine Glucose (UA) Urine Ketones Urine Blood Urine Nitrite Urine Bilirubin Urine Urobilinogen Ur Leukocyte Esterase Influenza A (Rapid) Influenza B (Rapid) 10/29/19 10/29/19 10/29/19 22:58 22:58 22:58 WBC RBC Hgb Hct MCV MCH MCHC RDW Plt Count MPV Absolute Neuts (auto) Neutrophils % Lymphocytes % Monocytes % Eosinophils % Basophils % Nucleated RBC % VBG pH POC VBG pCO2 POC VBG pO2 VBG HCO3 VBG O2 Sat (Mik) VBG Base Excess Sodium 133 L Potassium 4.0 Chloride 96 L Carbon Dioxide 26 Anion Gap 11 BUN 12.9 Creatinine 1.1 Est GFR (CKD-EPI)AfAm 74.80 Est GFR (CKD-EPI)NonAf 64.54 POC Glucometer Random Glucose 556 H* Serum Osmolality Lactic Acid 3.4 H* Calcium 8.6 Total Bilirubin 0.2 AST 18 ALT 30 Alkaline Phosphatase 101 Total Protein 6.2 L Albumin 3.3 L Beta-Hydroxybutyrate Beta HCG, Quant < 1.0 Urine Color Urine Appearance Urine pH Ur Specific [place] Urine Protein Urine Glucose (UA) Urine Ketones Urine Blood Urine Nitrite Urine Bilirubin Urine Urobilinogen Ur Leukocyte Esterase Influenza A (Rapid) Influenza B (Rapid) 10/29/19 10/30/19 23:55 00:39 WBC RBC Hgb Hct MCV MCH MCHC RDW Plt Count MPV Absolute Neuts (auto) Neutrophils % Lymphocytes % Monocytes % Eosinophils % Basophils % Nucleated RBC % VBG pH POC VBG pCO2 POC VBG pO2 VBG HCO3 VBG O2 Sat (Mik) VBG Base Excess Sodium Potassium Chloride Carbon Dioxide Anion Gap BUN Creatinine Est GFR (CKD-EPI)AfAm Est GFR (CKD-EPI)NonAf POC Glucometer Random Glucose Serum Osmolality Lactic Acid 4.0 H* Calcium Total Bilirubin AST ALT Alkaline Phosphatase Total Protein Albumin Beta-Hydroxybutyrate Beta HCG, Quant Urine Color Urine Appearance Urine pH Ur Specific [place] Urine Protein Urine Glucose (UA) Urine Ketones Urine Blood Urine Nitrite Urine Bilirubin Urine Urobilinogen Ur Leukocyte Esterase Influenza A (Rapid) Negative Influenza B (Rapid) Negative Active Medications Generic Name Dose Route Start Last Admin Trade Name Freq PRN Reason Stop Dose Admin Aripiprazole 10 mg 10/30/19 10:00 Abilify PO DAILY SHAHID Escitalopram Oxalate 10 mg 10/30/19 10:00 Lexapro - PO DAILY SHAHID Folic Acid 1 mg 10/30/19 10:00 Folic Acid - PO DAILY [facility] Insulin Human Regular 100 100 mls @ 9 mls/hr 10/29/19 21:00 10/29/19 21:20 units/ Sodium Chloride IVPB 9 units/hr TITR SHAHID 9 mls/hr Administration Protocol 9 UNITS/HR Potassium Chloride 20 meq/ 1,010 mls @ 200 mls/hr 10/30/19 00:47 10/30/19 02:54 Sodium Chloride IVPB Not Given ASDIR SHAHID Potassium Chloride 20 meq/ 1,010 mls @ 150 mls/hr 10/30/19 01:45 10/30/19 02:45 Sodium Chloride IVPB 150 mls/hr ASDIR SHAHID Administration Multivitamins/Minerals/Vitamin C 1 tab 10/30/19 10:00 Tab-A-Vit - PO DAILY [facility] Thiamine HCl 100 mg 10/30/19 01:15 10/30/19 03:09 Vitamin B1 - PO 100 mg BID SHAHID Administration ASSESSMENT/PLAN: 34 F PMH of PSA, IDDM who presents with hyperglycemia likely secondary to medication non-compliance. Neuro/Psych -Patient is AAOx3 -Hx of schizoaffective disorder, MDD, PTSD, anxiety -Continue aripiprazole, escitalopram -Thimaine, folate, multivitamin given. -Seizure precautions -Continue to monitor Cardiovascular -Patient is hemodynamically stable -Will continue to monitor Pulmonary -Patient currently satting 100% on RA. -Will continue to monitor GI -No issues, stable -Will continue to monitor Endo -Glucose of 798 on admission, 556 on repeat BMP. Repeat BMP shows glucose of 63. -Beta hydroxybutyric acid 20.2. Ag of 10 -D/C Insulin drip -NS + 20 meq KCL @ 125 ml/hr -Diabetic diet -Basal insulin (50 Levemir in AM, 40 Levemir in PM) + ISS -Diabetic diet -Has increasing lactic acidosis, denies metformin use, and methanol ingestion. -Repeat BMP. Renal -Patient has increasing lactic acid -Continue to monitor with IV hydration ID -Patient has lactic acidosis, no signs of sepsis or shock. -Continue to monitor. -Denies IV drug use. F: NS + 20meq KCl @125 E: Monitor Na, corrected level 140 N: Diabetic diet DVT: Lovenox Dispo: Patient does not require ICU monitoring. Please reconsult for any signs of AMS, respiratory distress or significant cardiac events. Visit type - Emergency Visit Emergency Visit: Yes ED Registration Date: 10/29/19 Care time: The patient presented to the Emergency Department on the above date and was hospitalized for further evaluation of their emergent condition. - New Patient This patient is new to me today: Yes Date on this admission: 10/30/19 - Critical Care Critical Care patient: Yes Total Critical Care Time (in minutes): 45 Critical Care Statement: The care of this patient involved high complexity decision making to prevent further life threatening deterioration of the patient's condition and/or to evaluate & treat vital organ system(s) failure or risk of failure. ATTENDING PHYSICIAN STATEMENT I saw and evaluated the patient. I reviewed the resident's note and discussed the case with the resident. I agree with the resident's findings and plan as documented. SUBJECTIVE: OBJECTIVE: ASSESSMENT AND PLAN:
[2019-10-30 04:53] LABS: CALCIUM 8.1 mg/dL (8.5-10.1); CREATININE 0.7 mg/dL (0.55-1.3); POTASSIUM 3.9 mmol/L (3.5-5.1)
[2019-10-30] MEDS ORDERED: DEXTROSE 5%-0.45% SALINE 1,000 ML IV SCH (05:15)
[2019-10-30] MEDS: INSULIN SLIDING SCALE (NOVOLOG) 1 VIAL SQ SCH ×4 (07:55→23:43)
[2019-10-30 08:00] LABS: HEMOGLOBIN 9.9 GM/dL (10.7-15.3); MCH 25.4 pg (25.7-33.7); MCHC 34.1 g/dl (32.0-36.0); MEAN CELL VOLUME 74.4 fl (80-96); MEAN PLT VOLUME 9.8 fl (7.5-11.1); PLATELET COUNT 226 K/MM3 (134-434); RBC 3.89 M/mm3 (3.60-5.2); RDW 19.8 % (11.6-15.6); WHITE BLOOD COUNT 5.5 K/mm3 (4.0-10.0)
[2019-10-30 08:26] LABS: ALBUMIN 2.8 g/dl (3.4-5.0); BILIRUBIN,TOTAL 0.3 mg/dL (0.2-1); BLOOD UREA NITROGEN 8.2 mg/dL (7-18); CREATININE 0.7 mg/dL (0.55-1.3); PHOSPHOROUS 4.6 mg/dL (2.5-4.9); POTASSIUM 4.4 mmol/L (3.5-5.1); TOT PROT 5.4 g/dl (6.4-8.2)
[2019-10-30] MEDS ORDERED: INSULIN (LEVEMIR) 100 UNITS/ML UNITS SQ SCH ×2 (10:00→22:00)
[2019-10-30] MEDS ORDERED: PT OWN MED DRAWER 7, Y5N ONE (10:08)
[2019-10-30] MEDS: MULTIVITAMINS (DAILY MVI) TABLET (FP) PO SCH (10:09)
[2019-10-30] MEDS: ARIPiprazole 10 MG TABLET PO SCH (10:09)
[2019-10-30] MEDS: ESCITALOPRAM OXALATE 10 MG TABLET PO SCH (10:09)
[2019-10-30] MEDS: FOLIC ACID 1 MG TABLET (FP) PO SCH (10:09)
--- NOTE | 2019-10-30 13:16 | EKG ---
Test Reason : Blood Pressure : / mmHG Vent. Rate : 076 BPM Atrial Rate : 076 BPM P-R Int : 130 ms QRS Dur : 078 ms QT Int : 366 ms P-R-T Axes : 072 067 047 degrees QTc Int : 411 ms SINUS RHYTHM WITH MARKED SINUS ARRHYTHMIA OTHERWISE NORMAL ECG NO PREVIOUS ECGS AVAILABLE Confirmed by RADHA JUNIOR, MAGDY ([id number]) on 10/30/2019 1:16:22 PM Referred By: Confirmed By:MAGDY GARCIA MD
[2019-10-30 13:47] VITALS: BMI 36.6
--- NOTE | 2019-10-30 15:44 | PN ---
Progress Note (short form) - Note Progress Note: Patient seen and examined at bedside states she came to the hospital because she ran out of insulin. She denies nausea vomiting fever chills chest pain SOB cough dysuria diarrhea constipation or any other symptoms at this time. feels well. States she takes 20 units of novolog before each meal and 50 units QAM of long acting and 40 units of long acting at night On exam she is AAOx3. RRR CTAB Soft non tedner non distended abdomen no edema of lower extremities bilaterally Patient is a 34 year old female with history of polsysubstance abuse (cocaine, alcohol, marijuana), insulin-dependent diabetes presents with hyperglycemia > 700 with associated nausea and vomiting (patient denied nausea and vomiting to me and stated she came to hospital because of running out of insulin and insurance issues) Hyperglycemia continue insulin levemir 20 units BID as ordered by admitting team endocrinology consult-never seen by one trend fingersticks and titrate insulin ad necessary diabetic diet hypernatremia resolved Alcohol use disorder not in withdrawals at this time librium protocol if she starts displaying signs and/or symptoms Thiamine, Folate, multivitamin Anxiety/depression continue Aripipraole and Lexapro which were both started at [facility] Prophylaxis SCDs as patient is allergic to pork porcine products please see admitting H&P done today (early this AM) for further information Visit type - Emergency Visit Emergency Visit: Yes ED Registration Date: 10/29/19 Care time: The patient presented to the Emergency Department on the above date and was hospitalized for further evaluation of their emergent condition. - New Patient This patient is new to me today: Yes Date on this admission: 10/30/19 - Critical Care Critical Care patient: No
[2019-10-30] MEDS ORDERED: DEXTROSE 50%-WATER 25 GM/50 ML DISP.SYRIN IVPUSH PRN (17:52)
[2019-10-30] MEDS ORDERED: INSULIN (LEVEMIR) 100 UNITS/ML UNITS SQ ONE ×3 (17:53→20:52)
[2019-10-30] MEDS ORDERED: INSULIN (NOVOLOG) ASPART 100 UNITS/ML 10ML VIAL ONE (20:52)
[2019-10-30] MEDS: INSULIN (LEVEMIR) 100 UNITS/ML UNITS SQ SCH (23:45)
[2019-10-31] MEDS: INSULIN SLIDING SCALE (NOVOLOG) 1 VIAL SQ SCH ×9 (04:36→21:02)
[2019-10-31] MEDS ORDERED: INSULIN (NOVOLOG) ASPART 100 UNITS/ML 10ML VIAL SQ SCH (07:00)
[2019-10-31] MEDS: INSULIN (LEVEMIR) 100 UNITS/ML UNITS SQ SCH ×3 (07:21→21:02)
[2019-10-31] MEDS ORDERED: PT OWN MED DRAWER 7, Y5N ONE ×2 (09:40→10:06)
[2019-10-31] MEDS ORDERED: ARIPiprazole 5 MG TABLET ONE (09:40)
[2019-10-31] MEDS ORDERED: INSULIN (LEVEMIR) 100 UNITS/ML UNITS SQ ONE ×2 (09:41→11:41)
[2019-10-31] MEDS ORDERED: INSULIN (NOVOLOG) ASPART 100 UNITS/ML 10ML VIAL ONE (09:41)
[2019-10-31] MEDS: ARIPiprazole 10 MG TABLET PO SCH (09:50)
[2019-10-31 09:51] LABS: BASO % 0.6 % (0-2.0); EOS % 2.2 % (0-4.5); HEMATOCRIT 33.4 % (32.4-45.2); HEMOGLOBIN 11.2 GM/dL (10.7-15.3); LYMPH % 47.3 % (8-40); MCH 25.1 pg (25.7-33.7); MCHC 33.6 g/dl (32.0-36.0); MEAN CELL VOLUME 74.7 fl (80-96); MEAN PLT VOLUME 9.9 fl (7.5-11.1); MONO % 15.8 % (3.8-10.2); NEUT % 34.1 % (42.8-82.8); PLATELET COUNT 247 K/MM3 (134-434); RBC 4.47 M/mm3 (3.60-5.2); RDW 19.6 % (11.6-15.6); WHITE BLOOD COUNT 4.9 K/mm3 (4.0-10.0)
[2019-10-31] MEDS: ESCITALOPRAM OXALATE 10 MG TABLET PO SCH (09:51)
[2019-10-31] MEDS: MULTIVITAMINS (DAILY MVI) TABLET (FP) PO SCH (09:51)
[2019-10-31] MEDS: THIAMINE HCL 100 MG TABLET (FP) PO SCH ×2 (09:56→21:02)
[2019-10-31] MEDS: FOLIC ACID 1 MG TABLET (FP) PO SCH (09:56)
[2019-10-31 10:17] LABS: BLOOD UREA NITROGEN 8.4 mg/dL (7-18); CALCIUM 8.1 mg/dL (8.5-10.1); CREATININE 0.5 mg/dL (0.55-1.3); MAGNESIUM 1.9 mg/dL (1.8-2.4); POTASSIUM 3.9 mmol/L (3.5-5.1)
[2019-10-31] MEDS ORDERED: COD LIVER OIL/ZINC OXIDE PASTE 56 GM TUBE TP PRN (14:23)
--- NOTE | 2019-10-31 15:13 | PN ---
Progress Note, Physician History of Present Illness: Patient seen and examined at bedside. Fingersticks better controlled. Pending endocrinology consult. Denies any symptoms at this time. Denies nausea vomiting fever chills chest pain SOB diarrhea constipation or urinary symptoms. Wants to shower. Endorses chaffing of inner thighs from rubbing together when she walks. Desitin/barrier cream ordered. - Current Medication List Current Medications: Active Medications Aripiprazole (Abilify) 10 mg PO DAILY [facility] Last Admin: 10/31/19 09:50 Dose: 10 mg Dextrose (D50w (Syringe) -) 25 gm IVPUSH PRN PRN PRN Reason: HYPOGLYCEMIA Escitalopram Oxalate (Lexapro -) 10 mg PO DAILY [facility] Last Admin: 10/31/19 09:51 Dose: 10 mg Folic Acid (Folic Acid -) 1 mg PO DAILY [facility] Last Admin: 10/31/19 09:56 Dose: 1 mg Insulin Aspart (Novolog Vial Sliding Scale -) 1 vial SQ ACHS [facility]; Protocol Last Admin: 10/31/19 11:56 Dose: 8 units Insulin Aspart (Novolog Vial Sliding Scale -) 1 vial SQ Q4HPO [facility]; Protocol Last Admin: 10/31/19 14:56 Dose: Not Given Insulin Detemir (Levemir Vial) 50 units SQ BID@0700,2200 [facility] Last Admin: 10/31/19 09:59 Dose: 50 units Multivitamins/Minerals/Vitamin C (Tab-A-Vit -) 1 tab PO DAILY [facility] Last Admin: 10/31/19 09:51 Dose: 1 tab Thiamine HCl (Vitamin B1 -) 100 mg PO BID [facility] Last Admin: 10/31/19 09:56 Dose: Not Given Zinc Oxide (Desitin Diaper Rash Oint -) 1 applic TP ASDIR PRN PRN Reason: HYGEINE - Objective Vital Signs: Vital Signs Temperature 98.2 F 10/31/19 06:00 Pulse Rate 70 10/31/19 06:00 Respiratory Rate 18 10/31/19 06:00 Blood Pressure 90/40 L 10/31/19 06:00 O2 Sat by Pulse Oximetry (%) 98 10/30/19 21:00 Constitutional: Yes: No Distress, Obese Eyes: Yes: EOM Intact HENT: Yes: Atraumatic, Normocephalic Neck: Yes: Supple Cardiovascular: Yes: Regular Rate and Rhythm Respiratory: Yes: CTA Bilaterally Gastrointestinal: Yes: Normal Bowel Sounds, Soft, Abdomen, Obese. No: Tenderness, Tenderness, Rebound, Vomiting Genitourinary: Yes: WNL, Other (no suprapubic tenderness) Extremities: Yes: WNL Edema: No Integumentary: Yes: Other (chaffing of inner thighs bilaterally) Neurological: Yes: Alert, Oriented ...Motor Strength: WNL Psychiatric: Yes: Alert, Oriented Labs: CBC, [facility] 10/31/19 08:15 10/31/19 08:15 - ....Imaging Chest X-ray: Report Reviewed Impression/Plan Impression/Plan: Patient is a 34 year old female with history of polsysubstance abuse (cocaine, alcohol, marijuana), insulin-dependent diabetes presents with hyperglycemia blood glucose on BMP 798 on admission with associated nausea and vomiting ( patient denied nausea and vomiting to me and stated she came to hospital because of running out of insulin and insurance issues). Was not in DKA. Hyperglycemia/uncontrolled DM due to non compliance restart home dose of long acting to 50 units BID per endocrinology. Verified with patient She also takes novolog 20 units before each meal but sometimes skips morning one because she doesn't always eat breakfast endocrinology consult pending-never seen by one trend fingersticks and titrate insulin as necessary diabetic diet counselled on the importance of compliance and complications of uncontrolled diabetes including but not limited to renal failure requiring dialysis heart disease neuropathy and even counselled on importance of carb limited diet, exercise, and weight loss hypernatremia resolved Alcohol use disorder not in withdrawals at this time librium protocol if she starts displaying signs and/or symptoms Thiamine, Folate, multivitamin Chaffing desitin/barrier cream Anxiety/depression continue Aripipraole and Lexapro which were both started at [facility] Prophylaxis SCDs as patient is allergic to pork porcine products ambulate Visit type - Emergency Visit Emergency Visit: Yes ED Registration Date: 10/29/19 Care time: The patient presented to the Emergency Department on the above date and was hospitalized for further evaluation of their emergent condition. - New Patient This patient is new to me today: No - Critical Care Critical Care patient: No
--- NOTE | 2019-10-31 16:05 | CONSULT ---
Consult Consult Specialty:: endocrine Referred by:: Avril Tavarez MD Reason for Consultation:: DMT1 - History of Present Illness Chief Complaint: High blood sugars History of Present Illness: 34 year old female with history of DMT1,diabetic neuropathy,polsysubstance abuse (cocaine, alcohol, marijuana), presents with complaint of nausea, vomiting. Patient was recently in rehab facility where sugars were out of control and was not comfortable with management of her condition.she has dm since age 15 was placed on insulin however requires high doses per meal,she has no hypoglycemia,cp cough or fever. - Past Medical History Endocrine: Yes: Diabetes Mellitus (Insulin dependent) - Past Surgical History Past Surgical History: Yes: None - Alcohol/Substance Use Hx Alcohol Use: No - Smoking History Smoking history: Never smoked Have you smoked in the past 12 months: Yes Aproximately how many cigarettes per day: 10 Home Medications - Allergies Allergies/Adverse Reactions: Allergies Allergy/AdvReac Type Severity Reaction Status Date / Time bupropion [From Wellbutrin] Allergy Rash Verified 10/29/19 17:20 Penicillins Allergy Rash Verified 10/29/19 17:20 Pork/Porcine Containing Allergy Rash Verified 10/29/19 17:20 Products shellfish derived Allergy Rash Verified 10/29/19 17:20 - Home Medications Home Medications: Ambulatory Orders Insulin (Novolog) [Novolog Vial] 20 units SQ TID 10/21/19 Insulin Detemir [Levemir Flextouch] 40 unit SQ HS #14 insuln.pen 10/27/19 Insulin Detemir [Levemir Flextouch] 50 unit SQ DAILY #14 insuln.pen 10/27/19 Review of Systems - Review of Systems Constitutional: reports: Weakness Eyes: reports: Blurred Vision HENT: reports: No Symptoms Neck: reports: No Symptoms Cardiovascular: reports: No Symptoms Respiratory: reports: SOB on Exertion Gastrointestinal: reports: Constipation Genitourinary: reports: No Symptoms Breasts: reports: No Symptoms Reported Musculoskeletal: reports: Muscle Cramps Endocrine: reports: Unexplained Weight Loss Physical Exam Vital Signs: Vital Signs Temperature 98.2 F 10/31/19 06:00 Pulse Rate 70 10/31/19 06:00 Respiratory Rate 18 10/31/19 06:00 Blood Pressure 90/40 L 10/31/19 06:00 O2 Sat by Pulse Oximetry (%) 98 10/30/19 21:00 Constitutional: Yes: Calm Eyes: Yes: EOM Intact HENT: Yes: Normocephalic Neck: Yes: Trachea Midline Cardiovascular: Yes: Regular Rate and Rhythm Respiratory: Yes: CTA Bilaterally Gastrointestinal: Yes: Normal Bowel Sounds ...Rectal Exam: Yes: Deferred Renal/: Yes: WNL Breast(s): Yes: WNL Musculoskeletal: Yes: Muscle Pain, Muscle Weakness Extremities: Yes: WNL Peripheral Pulses WNL: Yes Neurological: Yes: Alert, Oriented Labs: CBC, BMP 10/31/19 08:15 10/31/19 08:15 Problem List - Problems (1) Hyperglycemia due to type 1 diabetes mellitus Problems reviewed: Yes Code(s): E10.65 - TYPE 1 DIABETES MELLITUS WITH HYPERGLYCEMIA (2) Cannabis dependence Problems reviewed: Yes Code(s): F12.20 - CANNABIS DEPENDENCE, UNCOMPLICATED (3) Marijuana smoker Problems reviewed: Yes Code(s): F12.90 - CANNABIS USE, UNSPECIFIED, UNCOMPLICATED (4) Substance induced mood disorder Problems reviewed: Yes Code(s): F19.94 - OTH PSYCHOACTIVE SUBSTANCE USE, UNSP W MOOD DISORDER (5) Substance-induced sleep disorder Problems reviewed: Yes Code(s): F19.982 - OTH PSYCHOACTIVE SUBSTANCE USE, UNSP W SLEEP DISORDER (6) Nicotine dependence Problems reviewed: Yes Code(s): F17.200 - NICOTINE DEPENDENCE, UNSPECIFIED, UNCOMPLICATED Assessment/Plan Current Active Problems Diabetes mellitus (Acute) Hyperglycemia due to type 1 diabetes mellitus (Acute) diabetic gastroparesis anxiety depression Abnormal Lab Results 10/31/19 10/31/19 10/31/19 08:15 08:15 08:15 MCV 74.7 L MCH 25.1 L RDW 19.6 H Neutrophils % 34.1 L D Lymphocytes % 47.3 H D Monocytes % 15.8 H D Anion Gap 5 L Creatinine 0.5 L Random Glucose 73 L Hemoglobin A1c % 10.9 H Calcium 8.1 L Laboratory Tests 10/30/19 10/31/19 10/31/19 23:39 04:11 07:20 POC Glucometer 337 240 67 10/31/19 10/31/19 09:45 11:30 POC Glucometer 283 292 plan: levemir 50units bid novolog sliding scale ck glycomark ck tsh free t4 nutrition consult
[2019-11-01] MEDS: INSULIN (LEVEMIR) 100 UNITS/ML UNITS SQ SCH (06:06)
[2019-11-01] MEDS: INSULIN SLIDING SCALE (NOVOLOG) 1 VIAL SQ SCH ×2 (06:06→12:18)
[2019-11-01] MEDS ORDERED: INSULIN (LEVEMIR) 100 UNITS/ML UNITS SQ ONE (06:29)
--- NOTE | 2019-11-01 09:00 | PN ---
Teaching Attending Note Name of Resident: Barrie Herring ATTENDING PHYSICIAN STATEMENT I saw and evaluated the patient. I reviewed the resident's note and discussed the case with the resident. I agree with the resident's findings and plan as documented. SUBJECTIVE: Comfortable, tolerating p.o. OBJECTIVE: Vital Signs Temperature 97.9 F 11/01/19 05:00 Pulse Rate 70 11/01/19 05:00 Respiratory Rate 18 11/01/19 05:00 Blood Pressure 106/62 11/01/19 05:00 O2 Sat by Pulse Oximetry (%) 98 11/01/19 00:32 General: Young female, comfortable, not in distress HEENT; mucous membranes moist, no anemia, no jaundice, PERRLA, no nystagmus Neck: No JVD, supple, no bruit, thyroid palpably normal, normal carotid pulsations. Chest: Nontender, clear to auscultation bilaterally CVS: S1-S2 regular no murmur/gallop/rub Abdomen: Nondistended, soft, bowel sounds present. 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 , no gross motor sensory deficit CBC, BMP 10/31/19 08:15 10/31/19 08:15 Active Medications Aripiprazole (Abilify) 10 mg PO DAILY [facility] Last Admin: 10/31/19 09:50 Dose: 10 mg Dextrose (D50w (Syringe) -) 25 gm IVPUSH PRN PRN PRN Reason: HYPOGLYCEMIA Escitalopram Oxalate (Lexapro -) 10 mg PO DAILY [facility] Last Admin: 10/31/19 09:51 Dose: 10 mg Folic Acid (Folic Acid -) 1 mg PO DAILY [facility] Last Admin: 10/31/19 09:56 Dose: 1 mg Insulin Aspart (Novolog Vial Sliding Scale -) 1 vial SQ [facility]; Protocol Last Admin: 11/01/19 06:06 Dose: Not Given Insulin Detemir (Levemir Vial) 50 units SQ BID@0700,2200 [facility] Last Admin: 11/01/19 06:06 Dose: 50 units Multivitamins/Minerals/Vitamin C (Tab-A-Vit -) 1 tab PO DAILY [facility] Last Admin: 10/31/19 09:51 Dose: 1 tab Thiamine HCl (Vitamin B1 -) 100 mg PO BID [facility] Last Admin: 10/31/19 21:02 Dose: 100 mg Zinc Oxide (Desitin Diaper Rash Oint -) 1 applic TP ASDIR PRN PRN Reason: HYGEINE ASSESSMENT AND PLAN: 34 years old female history of type 2 diabetes mellitus on insulin presented with nausea vomiting in the setting of uncontrolled diabetes mellitus, patient was noncompliant with insulin as she was discharged from alcohol rehab 1 week ago and could not refill his home medications, fingersticks are in acceptable range no anion gap ED educated patient about compliance and provide all her insulin prescriptions patient will be follow-up with the PMD insulin doses optimized. Will DC patient home
[2019-11-01] MEDS ORDERED: ARIPiprazole 5 MG TABLET ONE ×2 (09:20→09:21)
[2019-11-01] MEDS: MULTIVITAMINS (DAILY MVI) TABLET (FP) PO SCH (09:49)
[2019-11-01] MEDS: ESCITALOPRAM OXALATE 10 MG TABLET PO SCH (09:50)
[2019-11-01] MEDS: FOLIC ACID 1 MG TABLET (FP) PO SCH (09:56)
[2019-11-01] MEDS: THIAMINE HCL 100 MG TABLET (FP) PO SCH (09:58)
[2019-11-01] MEDS: ARIPiprazole 10 MG TABLET PO SCH (10:00)
[2019-11-01] MEDS ORDERED: PT OWN MED DRAWER 7, Y5N ONE ×2 (11:37→13:41)
[2019-11-01 12:21] VITALS: BP 108/63; PULSE 67; TEMP 98
--- NOTE | 2019-11-01 15:12 | DS ---
Physical Exam: SUBJECTIVE: Patient seen and examined. offers no complaints. denies nausea, vomiting, abdominal pain, sob, chest pain. OBJECTIVE: Vital Signs Period Temp Pulse Resp BP Sys/Harmon Pulse Ox Last 24 Hr 97.9 F-98.3 F 66-76 18-20 100-118/53-63 98-98 PHYSICAL EXAM General: comfortable in NAD HEENT; mucous membranes moist, no anemia, no jaundice, PERRLA, no nystagmus Neck: No JVD, supple, no bruit, thyroid palpably normal, normal carotid pulsations. Chest: Nontender, clear to auscultation bilaterally CVS: S1-S2 regular no murmur/gallop/rub Abdomen: obese, Nondistended, soft, bowel sounds present. 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 LABS Laboratory Results - last 24 hr 10/30/19 10/31/19 10/31/19 06:26 17:09 20:59 POC Glucometer 253 255 140 TSH 11/01/19 11/01/19 11/01/19 05:44 06:55 11:53 POC Glucometer 78 317 TSH 1.20 HOSPITAL COURSE: Date of Admission:10/29/19 34 years old female history of type 2 diabetes mellitus on insulin presented with nausea vomiting in the setting of uncontrolled diabetes mellitus, patient was noncompliant with insulin as she was discharged from alcohol rehab 1 week ago and could not refill his home medications, fingersticks are in acceptable range no anion gap ED educated patient about compliance and provide all her insulin prescriptions patient will be follow-up with the PMD insulin doses optimized. #Hyperglycemia/uncontrolled DM due to non compliance -discharge patient on 50 U BID of Glargine with sliding scale. -improved -counselled on the importance of compliance and complications of uncontrolled diabetes including but not limited to renal failure requiring dialysis heart disease neuropathy and even . counselled on importance of carb limited diet , exercise, and weight loss -will follow up with endocrine outpatient #Alcohol use disorder not in withdrawals at this time Thiamine, Folate, multivitamin Date of Discharge: 11/01/19 Minutes to complete discharge: 35 Discharge Summary Problems reviewed: Yes Reason For Visit: DIABETES MELLITUS Condition: Improved - Instructions Diet, Activity, Other Instructions: You were admitted because of your uncontrolled sugar levels. We have made some changes to you medications. Please take your long acting insulin (Basaglar-Lantus) 50 Units twice a day. You will also be on a sliding scale. Take your sliding scale as directed. If you have further questions about the sliding scale, discuss with your pharmacist. Sliding Scale Blood Sugar 101-150 0 Units 151-200 2 Units 201-250 4 Units 251-300 6 Units 301-350 8 Units 351-400 10 Units >400 12 Units call your doctor Follow up with your primary care doctor in 1 week. Follow up with your policy writer typist. If you develop nausea, vomiting, fevers, chills, chest pain, or shortness of breath, then go to your nearest emergency department. Disposition: HOME - Home Medications Comprehensive Discharge Medication List: Ambulatory Orders Aripiprazole [Abilify -] 10 mg PO DAILY #30 tablet 11/01/19 Escitalopram Oxalate [Lexapro -] 10 mg PO DAILY #30 tablet 11/01/19 Folic Acid - 1 mg PO DAILY #30 tablet 11/01/19 Insulin Glargine,Hum.rec.anlog [Basaglar Kwikpen U-100] 50 unit SQ BID #30 insuln.pen 11/01/19 Insulin Lispro [Admelog] See Protocol SQ ACHS #30 vial 11/01/19 Multivitamins [Multivit ([facility] Formulary)] 1 tab PO DAILY #30 tab 11/01/19 This patient is new to me today: Yes Date on this admission: 11/01/19 Emergency Visit: Yes ED Registration Date: 10/29/19 Care time: The patient presented to the Emergency Department on the above date and was hospitalized for further evaluation of their emergent condition. Critical Care patient: No - Discharge Referral Referred to [facility] Med P.C.: No ATTENDING PHYSICIAN STATEMENT I saw and evaluated the patient. I reviewed the resident's note and discussed the case with the resident. I agree with the resident's findings and plan as documented. SUBJECTIVE: OBJECTIVE: ASSESSMENT AND PLAN:
== END 2019-11-01 14:03 | disposition home or self-care (01) | DRG 420 ==
LOC: JER 17:06 → JERBED 20:49 → J8W 10-30 11:02
PROVIDERS: ADMIT Internal Medicine; ATTEND Internal Medicine
DX: E10.65 Type 1 diabetes mellitus with hyperglycemia (principal); Z91.14 Patient's other noncompliance with medication regimen; E66.9 Obesity, unspecified; F10.10 Alcohol abuse, uncomplicated; F14.10 Cocaine abuse, uncomplicated; F12.10 Cannabis abuse, uncomplicated; F41.8 Other specified anxiety disorders; Z79.4 Long term (current) use of insulin; F25.9 Schizoaffective disorder, unspecified; E87.2 Acidosis; E10.40 Type 1 diabetes mellitus with diabetic neuropathy, unspecified; E10.43 Type 1 diabetes mellitus with diabetic autonomic (poly)neuropathy; K31.84 Gastroparesis
CPT/HCPCS: 36415; 71045-TC-FY; 80048; 80053; 81003; 82010; 82803; 82962; 83036; 83605; 83735; 83930; 84100; 84443; 84702; 85025; 85027; 87086; 87804; 93005; 93010; 99285-25; J7030

== ENCOUNTER 2019-11-17 17:13 | Inpatient (IN) | payer OTHER ==
[2019-11-17 19:00] VITALS: BMI 36.5
--- NOTE | 2019-11-17 19:58 | HP ---
CIWA Score Nausea/Vomitin Muscle Tremors: 3 Anxiety: 4-Mod. Anxious/Guarded Agitation: 4-Moderately Restless Paroxysmal Sweats: No Perspiration Orientation: 0-Oriented Tacttile Disturbances: 0-None Auditory Disturbances: 0-None Visual Disturbances: 0-None Headache: 2-Mild CIWA-Ar Total Score: 15 - Admission Criteria [facility]AS Guidelines: Admission for Medically Managed Detox: Requires at least one of the followin. CIWA greater than 12 2. Seizures within the past 24 hours 3. Delirium tremens within the past 24 hours 4. Hallucinations within the past 24 hours 5. Acute intervention needed for co occurring medical disorder 6. Acute intervention needed for co occurring psychiatric disorder 7. Severe withdrawal that cannot be handled at a lower level of care (continued vomiting, continued diarrhea, abnormal vital signs) requiring intravenous medication and/or fluids 8. Admitting History and Physical - Past Medical History Endocrine: Yes: Diabetes Mellitus (Insulin dependent) - Past Surgical History Past Surgical History: Yes: None - Smoking History Smoking history: Never smoked Have you smoked in the past 12 months: Yes Aproximately how many cigarettes per day: 10 - Alcohol/Substance Use Hx Alcohol Use: No Admission [facility] Chief Complaint: Alcohol withdrawal symptoms Allergies/Adverse Reactions: Allergies Allergy/AdvReac Type Severity Reaction Status Date / Time bupropion [From Wellbutrin] Allergy Rash Verified 11/17/19 19:03 Penicillins Allergy Rash Verified 11/17/19 19:03 Pork/Porcine Containing Allergy Rash Verified 11/17/19 19:03 Products shellfish derived Allergy Rash Verified 11/17/19 19:03 History of Present Illness: 34 years old female with a long history of alcohol dependence (since age 7 years ) is seeking admission to detox. Patient has medical history of Type 1 Diabetes , hyperlipidemia and psych. history of schizo-affective disorder, PTSD, Anxiety and depression. Her last admission was for the period 10/21/2019- 2019. Patient reports that she left against medical advice for a personal emergency and promised to complete her treatment. She reports suicide attempt in 2004 and 2016 and denies suicidal ideation at this time. Patient reports + eye form tamper and blackouts. Exam Limitations: No Limitations - Ebola screening Have you had contact with anyone from an Ebola affected area: No Have you been sick,other than usual withdrawal symptoms: No Do you have a fever: No - Review of Systems Constitutional: Chills, Malaise, Night Sweats, Changes in sleep EENT: reports: Nose Congestion Respiratory: reports: No Symptoms reported Cardiac: reports: No Symptoms Reported GI: reports: Blood Streaked Bowels, Diarrhea (x 2), Nausea, Poor Fluid Intake, Vomiting, Abdominal cramping : reports: No Symptoms Reported Musculoskeletal: reports: No Symptoms Reported Integumentary: reports: Dryness, Flushing Neuro: reports: Headache, Tremors Endocrine: reports: No Symptoms Reported Hematology: reports: No Symptoms Reported Psychiatric: reports: Mood/Affect Appropiate, Orientated x3, Anxious, Depressed Other Systems: Reviewed and Negative Patient History - Patient Medical History Hx Anemia: No Hx Asthma: No Hx Chronic Obstructive Pulmonary Disease (COPD): No Hx Cancer: No Hx Cardiac Disorders: No Hx Congestive Heart Failure: No Hx Hypertension: No Hx Hypercholesterolemia: Yes HX Cerebrovascular Accident: No Hx Seizures: No Hx Diabetes: Yes Hx Gastrointestinal Disorders: No Hx Liver Disease: No Hx Genitourinary Disorders: No Hx Sexually Transmitted Disorders: No Hx Renal Disease (ESRD): No Hx Thyroid Disease: No Hx Human Immunodeficiency Virus (HIV): No (Negative 2018) Hx Hepatitis C: No Hx Depression: Yes Hx Suicide Attempt: No (Suicide attempt in 2004 and 2017. Denies suicidal ideation at this time) Hx Bipolar Disorder: No Hx Schizophrenia: Yes Other Medical History: Anxiety - Patient Surgical History Past Surgical History: No Hx Neurologic Surgery: No Hx Cataract Extraction: No Hx Cardiac Surgery: No Hx Lung Surgery: No Hx Breast Surgery: No Hx Breast Biopsy: No Hx Abdominal Surgery: No Hx Appendectomy: No Hx Cholecystectomy: No Hx Genitourinary Surgery: No Hx Section: No Hx Orthopedic Surgery: Yes Hx Hysterectomy: No Anesthesia Reaction: No - PPD History Previous Implant?: Yes Documented Results: Negative w/proof Implanted On Prior R Admission?: Yes Date: 10/23/19 PPD to be Administered?: Yes - Reproductive History Patient is a Female of Child Bearing Age (11 -55 yrs old): Yes Last Menstrual Period: 10/16/19 Patient : No - Smoking Cessation Smoking history: Never smoked Have you smoked in the past 12 months: Yes Aproximately how many cigarettes per day: 10 Hx Chewing Tobacco Use: No Initiated information on smoking cessation: Yes 'Breaking Loose' booklet given: 11/17/19 - Substance & Tx. History Hx Alcohol Use: Yes Hx Substance Use: No Substance Use Type: Alcohol Hx Substance Use Treatment: Yes ([facility]) - Substances abused Alcohol Frequency: Daily Amount used: 3 BEERS 24OZ Age of first use: 7 Date of last use: 11/17/19 Marijuana/Hashish Substance route: Smoking Frequency: Daily Amount used: $10 Age of first use: 11 Date of last use: 11/16/19 K2/Spice Substance route: Smoking Frequency: Daily Amount used: $10 Age of first use: 34 Date of last use: 11/17/19 Admission Physical Exam [facility] - Vital Signs Vital Signs: Vital Signs - 24 hr 11/17/19 18:57 Temperature 97.0 F L Pulse Rate 104 H Respiratory 18 Rate Blood Pressure 123/75 - Physical General Appearance: Yes: Mild Distress, Moderate Distress, Tremorous, Anxious HEENTM: Yes: Within Normal Limits Respiratory: Yes: Lungs Clear, Normal Breath Sounds, No Respiratory Distress, Plerual Rub Neck: Yes: Within Normal Limits Breast: Yes: Breast Exam Deferred Cardiology: Yes: Tachycardia Abdominal: Yes: Normal Bowel Sounds, Protuberent Genitourinary: Yes: Within Normal Limits Back: Yes: Normal Inspection Musculoskeletal: Yes: Back pain Extremities: Yes: Tremors Neurological: Yes: Within Normal Limits Integumentary: Yes: Warm Lymphatic: Yes: Within Normal Limits - Diagnostic (1) Alcohol dependence with withdrawal, uncomplicated Current Visit: Yes Status: Acute (2) DM (diabetes mellitus), type 1, uncontrolled Current Visit: Yes Status: Acute (3) Hyperlipidemia Current Visit: Yes Status: Chronic Qualifiers: Hyperlipidemia type: unspecified Qualified Code(s): E78.5 - Hyperlipidemia , unspecified (4) Cannabis dependence Current Visit: Yes Status: Chronic (5) Nicotine dependence Current Visit: Yes Status: Chronic Qualifiers: Nicotine product type: cigarettes Substance use status: uncomplicated Qualified Code(s): F17.210 - Nicotine dependence, cigarettes, uncomplicated Cleared for Admission [facility] - Detox or Rehab [facility] Level of Care: Medically Managed Detox Regimen/Protocol: Librium Claeared for Rehab Admission: No Breathalyzer - Breathalyzer Breathalyzer: 0 Urine Drug Screen - Test Device Lot number: [id number] Expiration date: 09/11/21 - Control Is test valid?: Yes - Results Drug screen NEGATIVE: Yes Inpatient Rehab Admission - Rehab Decision to Admit Inpatient rehab admission?: No
[2019-11-17] MEDS ORDERED: MAGNESIUM CITRATE 300 ML BOTTLE PO PRN (20:30)
[2019-11-17] MEDS ORDERED: MAG HYDROX/AL HYDROX/SIMETH 30 ML UNIT-DOSE CUP PO PRN (20:30)
[2019-11-17] MEDS ORDERED: MAGNESIUM HYDROX 2400MG/30ML ORAL SUSPENSION 30 ML CUP PO PRN (20:30)
[2019-11-17] MEDS ORDERED: IBUPROFEN 400 MG TABLET (FP) PO PRN (20:30)
[2019-11-17] MEDS ORDERED: MENTHOL/PHENOL 1 EACH UD MM PRN (20:30)
[2019-11-17] MEDS ORDERED: hydrOXYzine PAMOATE 25 MG CAPSULE (FP) PO PRN (20:30)
[2019-11-17] MEDS ORDERED: chlordiazePOXIDE HCL 25 MG CAPSULE PO PRN (20:30)
[2019-11-17] MEDS ORDERED: ACETAMINOPHEN 325 MG TABLET (FP) PO PRN ×2 (20:30)
[2019-11-17] MEDS ORDERED: METHOCARBAMOL 500 MG TABLET PO PRN (20:30)
[2019-11-17] MEDS ORDERED: BISMUTH SUBSALICYLATE 524 MG/30 ML UD PO PRN (20:30)
[2019-11-17] MEDS ORDERED: PATIENT'S OWN MEDICATION (NON-FORMULARY) (Insulin Glargine,Hum.Rec.Anlog [Basaglar Kwikpen SQ SCH (22:00)
[2019-11-17] MEDS: chlordiazePOXIDE HCL 25 MG CAPSULE PO SCH (22:20)
[2019-11-17] MEDS: THIAMINE HCL 100 MG TABLET (FP) PO SCH (22:20)
[2019-11-17] MEDS: MELATONIN 5 MG TABLETS PO PRN (22:21)
[2019-11-17] MEDS: INSULIN SLIDING SCALE (NOVOLOG) 1 VIAL SQ SCH (22:37)
[2019-11-17] MEDS: INSULIN (LEVEMIR) 100 UNITS/ML UNITS SQ SCH (22:47)
[2019-11-18] MEDS: chlordiazePOXIDE HCL 25 MG CAPSULE PO SCH ×4 (05:50→22:40)
[2019-11-18] MEDS: INSULIN SLIDING SCALE (NOVOLOG) 1 VIAL SQ SCH ×4 (07:55→22:41)
[2019-11-18] MEDS: INSULIN (LEVEMIR) 100 UNITS/ML UNITS SQ SCH ×2 (07:56→22:41)
[2019-11-18 09:43] LABS: HEMATOCRIT 33.1 % (32.4-45.2); MCH 24.9 pg (25.7-33.7); MCHC 33.3 g/dl (32.0-36.0); MEAN CELL VOLUME 74.7 fl (80-96); MEAN PLT VOLUME 8.9 fl (7.5-11.1); PLATELET COUNT 245 K/MM3 (134-434); RBC 4.43 M/mm3 (3.60-5.2); RDW 19.5 % (11.6-15.6); WHITE BLOOD COUNT 6.1 K/mm3 (4.0-10.0)
[2019-11-18 10:01] LABS: ALBUMIN 2.9 g/dl (3.4-5.0); BILIRUBIN,TOTAL 0.5 mg/dL (0.2-1); BLOOD UREA NITROGEN 10.5 mg/dL (7-18); CALCIUM 8.4 mg/dL (8.5-10.1); CREATININE 0.5 mg/dL (0.55-1.3); POTASSIUM 4.3 mmol/L (3.5-5.1); TOT PROT 5.9 g/dl (6.4-8.2)
[2019-11-18] MEDS: PRENATAL VITAMINS W/ FOLIC ACID TABLET (FP) PO SCH (10:37)
[2019-11-18] MEDS: NICOTINE 14 MG/24 HOURS TOPICAL PATCH TD SCH (10:37)
[2019-11-18] MEDS: NICOTINE POLACRILEX 2 MG GUM BUC PRN ×2 (10:38→19:26)
--- NOTE | 2019-11-18 14:00 | PN ---
S CIWA - CIWA Score Nausea/Vomitin-Mild Nausea/No Vomiting Muscle Tremors: 2 Anxiety: 3 Agitation: 3 Paroxysmal Sweats: 2 Orientation: 0-Oriented Tacttile Disturbances: 0-None Auditory Disturbances: 0-None Visual Disturbances: 1-Very Mild Sensitivity Headache: 1-Very Mild CIWA-Ar Total Score: 13 S Progress Note (SOAP) Subjective: 34 years old female admitted on 11/17/19 for alcohol withdrawal sx management treating with librium detox regiment ate breakfast and lunch tolerated food and fluid well requests close capsule for librium administration close capsule ordered Objective: 11/18/19 14:26 Vital Signs Temperature 99.7 F H 11/18/19 12:37 Pulse Rate 86 11/18/19 12:37 Respiratory Rate 18 11/18/19 12:37 Blood Pressure 101/62 11/18/19 12:37 O2 Sat by Pulse Oximetry (%) Laboratory Last Values WBC 6.1 K/mm3 (4.0-10.0) 11/18/19 08:00 RBC 4.43 M/mm3 (3.60-5.2) 11/18/19 08:00 Hgb 11.0 GM/dL (10.7-15.3) 11/18/19 08:00 Hct 33.1 % (32.4-45.2) 11/18/19 08:00 MCV 74.7 fl (80-96) L 11/18/19 08:00 MCH 24.9 pg (25.7-33.7) L 11/18/19 08:00 MCHC 33.3 g/dl (32.0-36.0) 11/18/19 08:00 RDW 19.5 % (11.6-15.6) H 11/18/19 08:00 Plt Count 245 K/MM3 (134-434) 11/18/19 08:00 MPV 8.9 fl (7.5-11.1) D 11/18/19 08:00 Sodium 135 mmol/L (136-145) L 11/18/19 08:00 Potassium 4.3 mmol/L (3.5-5.1) 11/18/19 08:00 Chloride 104 mmol/L (98-107) 11/18/19 08:00 Carbon Dioxide 26 mmol/L (21-32) 11/18/19 08:00 Anion Gap 5 MMOL/L (8-16) L 11/18/19 08:00 BUN 10.5 mg/dL (7-18) 11/18/19 08:00 Creatinine 0.5 mg/dL (0.55-1.3) L 11/18/19 08:00 Est GFR (CKD-EPI)AfAm 144.31 11/18/19 08:00 Est GFR (CKD-EPI)NonAf 124.51 11/18/19 08:00 POC Glucometer 265 UNITS (80-120) 11/18/19 11:30 Random Glucose 168 mg/dL (74-106) H 11/18/19 08:00 Calcium 8.4 mg/dL (8.5-10.1) L 11/18/19 08:00 Total Bilirubin 0.5 mg/dL (0.2-1) 11/18/19 08:00 AST 9 U/L (15-37) L 11/18/19 08:00 ALT 16 U/L (13-61) 11/18/19 08:00 Alkaline Phosphatase 84 U/L (45-117) 11/18/19 08:00 Total Protein 5.9 g/dl (6.4-8.2) L 11/18/19 08:00 Albumin 2.9 g/dl (3.4-5.0) L 11/18/19 08:00 POC Urine HCG, Qual Negative 11/17/19 19:39 lab noted Assessment: 11/18/19 14:27 alcohol withdrawal Plan: librium regiment
[2019-11-18] MEDS ORDERED: chlordiazePOXIDE HCL 25 MG CAPSULE PO PRN (14:24)
--- NOTE | 2019-11-18 14:30 | EKG ---
Test Reason : Blood Pressure : / mmHG Vent. Rate : 079 BPM Atrial Rate : 079 BPM P-R Int : 132 ms QRS Dur : 076 ms QT Int : 366 ms P-R-T Axes : 071 058 044 degrees QTc Int : 419 ms NORMAL SINUS RHYTHM NORMAL ECG WHEN COMPARED WITH ECG OF 29-OCT-2019 19:53, NO SIGNIFICANT CHANGE WAS FOUND Confirmed by MAGDY GARCIA MD ([id number]) on 11/18/2019 2:29:42 PM Referred By: Confirmed By:MAGDY GARCIA MD
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
[2019-11-18] MEDS: THIAMINE HCL 100 MG TABLET (FP) PO SCH (22:39)
[2019-11-18] MEDS: ESCITALOPRAM OXALATE 10 MG TABLET PO SCH (22:40)
[2019-11-18] MEDS: ARIPiprazole 10 MG TABLET PO SCH (22:40)
[2019-11-19] MEDS: chlordiazePOXIDE HCL 25 MG CAPSULE PO SCH ×4 (06:27→22:08)
[2019-11-19] MEDS: INSULIN SLIDING SCALE (NOVOLOG) 1 VIAL SQ SCH ×4 (06:34→22:05)
[2019-11-19] MEDS: INSULIN (LEVEMIR) 100 UNITS/ML UNITS SQ SCH ×2 (07:52→22:04)
[2019-11-19] MEDS: PRENATAL VITAMINS W/ FOLIC ACID TABLET (FP) PO SCH (10:30)
[2019-11-19] MEDS: NICOTINE 14 MG/24 HOURS TOPICAL PATCH TD SCH (10:30)
--- NOTE | 2019-11-19 13:05 | PN ---
S CIWA - CIWA Score Nausea/Vomitin-Mild Nausea/No Vomiting Muscle Tremors: 2 Anxiety: 2 Agitation: 2 Paroxysmal Sweats: No Perspiration Orientation: 0-Oriented Tacttile Disturbances: 1-Very Mild Itch/Numbness Auditory Disturbances: 0-None Visual Disturbances: 0-None Headache: 1-Very Mild CIWA-Ar Total Score: 9 S Progress Note (SOAP) Subjective: alert,irritable,anxious,interrupted sleep Objective: 11/19/19 13:04 Vital Signs Temperature 98.7 F 11/19/19 09:03 Pulse Rate 83 11/19/19 09:03 Respiratory Rate 18 11/19/19 09:03 Blood Pressure 97/60 11/19/19 09:03 O2 Sat by Pulse Oximetry (%) Laboratory Last Values WBC 6.1 K/mm3 (4.0-10.0) 11/18/19 08:00 RBC 4.43 M/mm3 (3.60-5.2) 11/18/19 08:00 Hgb 11.0 GM/dL (10.7-15.3) 11/18/19 08:00 Hct 33.1 % (32.4-45.2) 11/18/19 08:00 MCV 74.7 fl (80-96) L 11/18/19 08:00 MCH 24.9 pg (25.7-33.7) L 11/18/19 08:00 MCHC 33.3 g/dl (32.0-36.0) 11/18/19 08:00 RDW 19.5 % (11.6-15.6) H 11/18/19 08:00 Plt Count 245 K/MM3 (134-434) 11/18/19 08:00 MPV 8.9 fl (7.5-11.1) D 11/18/19 08:00 Sodium 135 mmol/L (136-145) L 11/18/19 08:00 Potassium 4.3 mmol/L (3.5-5.1) 11/18/19 08:00 Chloride 104 mmol/L (98-107) 11/18/19 08:00 Carbon Dioxide 26 mmol/L (21-32) 11/18/19 08:00 Anion Gap 5 MMOL/L (8-16) L 11/18/19 08:00 BUN 10.5 mg/dL (7-18) 11/18/19 08:00 Creatinine 0.5 mg/dL (0.55-1.3) L 11/18/19 08:00 Est GFR (CKD-EPI)AfAm 144.31 11/18/19 08:00 Est GFR (CKD-EPI)NonAf 124.51 11/18/19 08:00 POC Glucometer 230 UNITS (80-120) 11/19/19 11:53 Random Glucose 168 mg/dL (74-106) H 11/18/19 08:00 Calcium 8.4 mg/dL (8.5-10.1) L 11/18/19 08:00 Total Bilirubin 0.5 mg/dL (0.2-1) 11/18/19 08:00 AST 9 U/L (15-37) L 11/18/19 08:00 ALT 16 U/L (13-61) 11/18/19 08:00 Alkaline Phosphatase 84 U/L (45-117) 11/18/19 08:00 Total Protein 5.9 g/dl (6.4-8.2) L 11/18/19 08:00 Albumin 2.9 g/dl (3.4-5.0) L 11/18/19 08:00 POC Urine HCG, Qual Negative 11/17/19 19:39 RPR Titer Nonreactive (NONREACTIVE) 11/18/19 08:00 Assessment: 11/19/19 13:04 withdrawal symptom Plan: continue detox librium regimen
[2019-11-19] MEDS: ESCITALOPRAM OXALATE 10 MG TABLET PO SCH (22:08)
[2019-11-19] MEDS: THIAMINE HCL 100 MG TABLET (FP) PO SCH (22:08)
[2019-11-19] MEDS: ARIPiprazole 10 MG TABLET PO SCH (22:08)
[2019-11-20] MEDS ORDERED: chlordiazePOXIDE HCL 10 MG CAPSULE PO PRN ×2
[2019-11-20] MEDS: chlordiazePOXIDE HCL 10 MG CAPSULE PO SCH ×4 (05:31→22:33)
[2019-11-20] MEDS: INSULIN SLIDING SCALE (NOVOLOG) 1 VIAL SQ SCH ×4 (06:08→21:56)
[2019-11-20] MEDS: INSULIN (LEVEMIR) 100 UNITS/ML UNITS SQ SCH ×2 (08:23→21:55)
[2019-11-20] MEDS: NICOTINE 14 MG/24 HOURS TOPICAL PATCH TD SCH (10:59)
[2019-11-20] MEDS: PRENATAL VITAMINS W/ FOLIC ACID TABLET (FP) PO SCH (11:00)
--- NOTE | 2019-11-20 14:16 | PN ---
S CIWA - CIWA Score Nausea/Vomitin-No Nausea/No Vomiting Muscle Tremors: None Anxiety: 2 Agitation: 1-Slight > Activity Paroxysmal Sweats: 3 Orientation: 0-Oriented Tacttile Disturbances: 0-None Auditory Disturbances: 0-None Visual Disturbances: 0-None Headache: 2-Mild CIWA-Ar Total Score: 8 S Progress Note (SOAP) Subjective: c/o sweats, anxiety, headache, and interrupted sleep. Objective: 11/20/19 14:15 Vital Signs 11/20/19 11/20/19 11/20/19 06:48 08:47 13:04 Temperature 97.9 F 97.7 F 98.1 F Pulse Rate 78 83 84 Respiratory 18 18 18 Rate Blood Pressure 101/55 L 108/65 103/59 L Laboratory Last Values WBC 6.1 K/mm3 (4.0-10.0) 11/18/19 08:00 RBC 4.43 M/mm3 (3.60-5.2) 11/18/19 08:00 Hgb 11.0 GM/dL (10.7-15.3) 11/18/19 08:00 Hct 33.1 % (32.4-45.2) 11/18/19 08:00 MCV 74.7 fl (80-96) L 11/18/19 08:00 MCH 24.9 pg (25.7-33.7) L 11/18/19 08:00 MCHC 33.3 g/dl (32.0-36.0) 11/18/19 08:00 RDW 19.5 % (11.6-15.6) H 11/18/19 08:00 Plt Count 245 K/MM3 (134-434) 11/18/19 08:00 MPV 8.9 fl (7.5-11.1) D 11/18/19 08:00 Sodium 135 mmol/L (136-145) L 11/18/19 08:00 Potassium 4.3 mmol/L (3.5-5.1) 11/18/19 08:00 Chloride 104 mmol/L (98-107) 11/18/19 08:00 Carbon Dioxide 26 mmol/L (21-32) 11/18/19 08:00 Anion Gap 5 MMOL/L (8-16) L 11/18/19 08:00 BUN 10.5 mg/dL (7-18) 11/18/19 08:00 Creatinine 0.5 mg/dL (0.55-1.3) L 11/18/19 08:00 Est GFR (CKD-EPI)AfAm 144.31 11/18/19 08:00 Est GFR (CKD-EPI)NonAf 124.51 11/18/19 08:00 POC Glucometer 276 UNITS (80-120) 11/20/19 10:53 Random Glucose 168 mg/dL (74-106) H 11/18/19 08:00 Calcium 8.4 mg/dL (8.5-10.1) L 11/18/19 08:00 Total Bilirubin 0.5 mg/dL (0.2-1) 11/18/19 08:00 AST 9 U/L (15-37) L 11/18/19 08:00 ALT 16 U/L (13-61) 11/18/19 08:00 Alkaline Phosphatase 84 U/L (45-117) 11/18/19 08:00 Total Protein 5.9 g/dl (6.4-8.2) L 11/18/19 08:00 Albumin 2.9 g/dl (3.4-5.0) L 11/18/19 08:00 POC Urine HCG, Qual Negative 11/17/19 19:39 RPR Titer Nonreactive (NONREACTIVE) 11/18/19 08:00 Labs noted. Assessment: 11/20/19 14:16 AOX3, in no respiratory distress. Full ROM, ambulating in the unit. Withdrawal symptoms. Plan: continue detox.
[2019-11-20] MEDS ORDERED: INSULIN SLIDING SCALE (NOVOLOG) 1 VIAL SQ ONE (16:50)
[2019-11-20] MEDS: MELATONIN 5 MG TABLETS PO PRN (22:33)
[2019-11-20] MEDS: ESCITALOPRAM OXALATE 10 MG TABLET PO SCH (22:33)
[2019-11-20] MEDS: THIAMINE HCL 100 MG TABLET (FP) PO SCH (22:33)
[2019-11-20] MEDS: ARIPiprazole 10 MG TABLET PO SCH (22:34)
[2019-11-21] MEDS ORDERED: chlordiazePOXIDE HCL 10 MG CAPSULE PO SCH (05:00)
[2019-11-21] MEDS ORDERED: INSULIN SLIDING SCALE (NOVOLOG) 1 VIAL SQ ONE ×2 (05:02→10:59)
[2019-11-21] MEDS: chlordiazePOXIDE HCL 10 MG CAPSULE PO SCH ×2 (05:27→16:44)
[2019-11-21] MEDS: INSULIN SLIDING SCALE (NOVOLOG) 1 VIAL SQ SCH ×4 (06:57→22:02)
[2019-11-21] MEDS: INSULIN (LEVEMIR) 100 UNITS/ML UNITS SQ SCH ×2 (08:16→22:02)
[2019-11-21] MEDS: NICOTINE 14 MG/24 HOURS TOPICAL PATCH TD SCH (10:13)
[2019-11-21] MEDS: NICOTINE POLACRILEX 2 MG GUM BUC PRN ×2 (10:13→15:05)
[2019-11-21] MEDS: PRENATAL VITAMINS W/ FOLIC ACID TABLET (FP) PO SCH (10:14)
--- NOTE | 2019-11-21 13:21 | PN ---
[facility] CIWA - CIWA Score Nausea/Vomitin-No Nausea/No Vomiting Muscle Tremors: 1-None Visible, but [place] Anxiety: 2 Agitation: 0-Normal Activity Paroxysmal Sweats: 1-Minimal Palms Moist Orientation: 0-Oriented Tacttile Disturbances: 0-None Auditory Disturbances: 0-None Visual Disturbances: 1-Very Mild Sensitivity Headache: 0-None Present CIWA-Ar Total Score: 5 BHS Progress Note (SOAP) Subjective: 34 years old female admitted on 11/17/19 for alcohol withdrawal sx management treating with librium detox regiment patient has long history of insulin dependent diabetes discontinue regular diet begin no concentrated sugar diet Objective: 11/21/19 13:22 Vital Signs Temperature 98.1 F 11/21/19 09:53 Pulse Rate 91 H 11/21/19 09:53 Respiratory Rate 20 11/21/19 09:53 Blood Pressure 104/66 11/21/19 09:53 O2 Sat by Pulse Oximetry (%) Laboratory Last Values WBC 6.1 K/mm3 (4.0-10.0) 11/18/19 08:00 RBC 4.43 M/mm3 (3.60-5.2) 11/18/19 08:00 Hgb 11.0 GM/dL (10.7-15.3) 11/18/19 08:00 Hct 33.1 % (32.4-45.2) 11/18/19 08:00 MCV 74.7 fl (80-96) L 11/18/19 08:00 MCH 24.9 pg (25.7-33.7) L 11/18/19 08:00 MCHC 33.3 g/dl (32.0-36.0) 11/18/19 08:00 RDW 19.5 % (11.6-15.6) H 11/18/19 08:00 Plt Count 245 K/MM3 (134-434) 11/18/19 08:00 MPV 8.9 fl (7.5-11.1) D 11/18/19 08:00 Sodium 135 mmol/L (136-145) L 11/18/19 08:00 Potassium 4.3 mmol/L (3.5-5.1) 11/18/19 08:00 Chloride 104 mmol/L (98-107) 11/18/19 08:00 Carbon Dioxide 26 mmol/L (21-32) 11/18/19 08:00 Anion Gap 5 MMOL/L (8-16) L 11/18/19 08:00 BUN 10.5 mg/dL (7-18) 11/18/19 08:00 Creatinine 0.5 mg/dL (0.55-1.3) L 11/18/19 08:00 Est GFR (CKD-EPI)AfAm 144.31 11/18/19 08:00 Est GFR (CKD-EPI)NonAf 124.51 11/18/19 08:00 POC Glucometer 414 UNITS (80-120) 11/21/19 10:56 Random Glucose 168 mg/dL (74-106) H 11/18/19 08:00 Calcium 8.4 mg/dL (8.5-10.1) L 11/18/19 08:00 Total Bilirubin 0.5 mg/dL (0.2-1) 11/18/19 08:00 AST 9 U/L (15-37) L 11/18/19 08:00 ALT 16 U/L (13-61) 11/18/19 08:00 Alkaline Phosphatase 84 U/L (45-117) 11/18/19 08:00 Total Protein 5.9 g/dl (6.4-8.2) L 11/18/19 08:00 Albumin 2.9 g/dl (3.4-5.0) L 11/18/19 08:00 POC Urine HCG, Qual Negative 11/17/19 19:39 RPR Titer Nonreactive (NONREACTIVE) 11/18/19 08:00 lab noted diabetes insulin dependent Assessment: 11/21/19 13:23 alcohol withdrawal Plan: librium regiment
[2019-11-21] MEDS: HYDROCORTISONE 1% TOPICAL CREAM 30 GM TUBE TP SCH ×3 (14:07→21:59)
[2019-11-21] MEDS: ARIPiprazole 10 MG TABLET PO SCH (21:59)
[2019-11-21] MEDS: THIAMINE HCL 100 MG TABLET (FP) PO SCH (21:59)
[2019-11-21] MEDS: ESCITALOPRAM OXALATE 10 MG TABLET PO SCH (21:59)
[2019-11-21] MEDS: MELATONIN 5 MG TABLETS PO PRN (22:00)
[2019-11-22] MEDS ORDERED: chlordiazePOXIDE HCL 10 MG CAPSULE PO ONE ×2 (05:00)
[2019-11-22 07:39] VITALS: BP 93/60; PULSE 85; TEMP 96.1
[2019-11-22] MEDS ORDERED: INSULIN (LEVEMIR) 100 UNITS/ML UNITS SQ ONE (07:42)
[2019-11-22] MEDS ORDERED: INSULIN SLIDING SCALE (NOVOLOG) 1 VIAL SQ ONE (07:43)
[2019-11-22] MEDS: INSULIN (LEVEMIR) 100 UNITS/ML UNITS SQ SCH (07:55)
[2019-11-22] MEDS: INSULIN SLIDING SCALE (NOVOLOG) 1 VIAL SQ SCH (07:56)
[2019-11-22] MEDS: HYDROCORTISONE 1% TOPICAL CREAM 30 GM TUBE TP SCH (09:32)
[2019-11-22] MEDS: NICOTINE 14 MG/24 HOURS TOPICAL PATCH TD SCH (09:32)
[2019-11-22] MEDS: PRENATAL VITAMINS W/ FOLIC ACID TABLET (FP) PO SCH (09:33)
--- NOTE | 2019-11-22 12:10 | DS ---
[facility] Detox Discharge Summary Admission Date: 11/17/19 Discharge Date: 11/22/19 - History Present History: Alcohol Dependence Additional Comments: 34 years old female admitted on 11/17/19 for alcohol withdrawal sx management treated with librium detox regiment Mrs Rivers has completed the librium regiment and tolerated well seen by psychiatrist mitchell moran patient is alert oriented x 3 cardiac s1s2 regular rate rhythm respiratory clear lungs bilaterally on auscultation extremities full range of motion Pertinent Past History: time for discharge 33 minutes - Physical Exam Results Vital Signs: Vital Signs Temperature 96.1 F L 11/22/19 06:00 Pulse Rate 85 11/22/19 06:00 Respiratory Rate 18 11/22/19 06:00 Blood Pressure 93/60 11/22/19 06:00 O2 Sat by Pulse Oximetry (%) Pertinent Admission Physical Exam Findings: alcohol withdrawal Laboratory Last Values WBC 6.1 K/mm3 (4.0-10.0) 11/18/19 08:00 RBC 4.43 M/mm3 (3.60-5.2) 11/18/19 08:00 Hgb 11.0 GM/dL (10.7-15.3) 11/18/19 08:00 Hct 33.1 % (32.4-45.2) 11/18/19 08:00 MCV 74.7 fl (80-96) L 11/18/19 08:00 MCH 24.9 pg (25.7-33.7) L 11/18/19 08:00 MCHC 33.3 g/dl (32.0-36.0) 11/18/19 08:00 RDW 19.5 % (11.6-15.6) H 11/18/19 08:00 Plt Count 245 K/MM3 (134-434) 11/18/19 08:00 MPV 8.9 fl (7.5-11.1) D 11/18/19 08:00 Sodium 135 mmol/L (136-145) L 11/18/19 08:00 Potassium 4.3 mmol/L (3.5-5.1) 11/18/19 08:00 Chloride 104 mmol/L (98-107) 11/18/19 08:00 Carbon Dioxide 26 mmol/L (21-32) 11/18/19 08:00 Anion Gap 5 MMOL/L (8-16) L 11/18/19 08:00 BUN 10.5 mg/dL (7-18) 11/18/19 08:00 Creatinine 0.5 mg/dL (0.55-1.3) L 11/18/19 08:00 Est GFR (CKD-EPI)AfAm 144.31 11/18/19 08:00 Est GFR (CKD-EPI)NonAf 124.51 11/18/19 08:00 POC Glucometer 293 UNITS (80-120) 11/22/19 06:05 Random Glucose 168 mg/dL (74-106) H 11/18/19 08:00 Calcium 8.4 mg/dL (8.5-10.1) L 11/18/19 08:00 Total Bilirubin 0.5 mg/dL (0.2-1) 11/18/19 08:00 AST 9 U/L (15-37) L 11/18/19 08:00 ALT 16 U/L (13-61) 11/18/19 08:00 Alkaline Phosphatase 84 U/L (45-117) 11/18/19 08:00 Total Protein 5.9 g/dl (6.4-8.2) L 11/18/19 08:00 Albumin 2.9 g/dl (3.4-5.0) L 11/18/19 08:00 POC Urine HCG, Qual Negative 11/17/19 19:39 RPR Titer Nonreactive (NONREACTIVE) 11/18/19 08:00 lab noted - Treatment Hospital Course: Detox Protocol Followed, Detoxed Safely, Responded well, Discharged Condition Good, Rehab Referral Accepted Patient has Accepted a Rehab Referral to: [facility] - Medication Discharge Medications: Ambulatory Orders Aripiprazole [Abilify -] 10 mg PO DAILY #30 tablet 11/01/19 Escitalopram Oxalate [Lexapro -] 10 mg PO DAILY #30 tablet 11/01/19 Folic Acid - 1 mg PO DAILY #30 tablet 11/01/19 Insulin Glargine,Hum.rec.anlog [Basaglar Kwikpen U-100] 50 unit SQ BID #30 insuln.pen 11/01/19 Insulin Lispro [Admelog] 20 unit SQ ACHS 11/17/19 - Diagnosis (1) Alcohol dependence with withdrawal, uncomplicated Status: Acute (2) DM (diabetes mellitus), type 1, uncontrolled Status: Chronic Qualifiers: Glycemic state: with hyperglycemia Qualified Code(s): E10.65 - Type 1 diabetes mellitus with hyperglycemia (3) Substance induced mood disorder Status: Suspected (4) Hyperlipidemia Status: Chronic Qualifiers: Hyperlipidemia type: unspecified Qualified Code(s): E78.5 - Hyperlipidemia , unspecified (5) Nicotine dependence Status: Acute Qualifiers: Nicotine product type: cigarettes Substance use status: in withdrawal Qualified Code(s): F17.213 - Nicotine dependence, cigarettes, with withdrawal - AMA Did Patient Leave Against Medical Advice: No CIWA Score - CIWA Score Nausea/Vomitin-No Nausea/No Vomiting Muscle Tremors: 1-None Visible, but [place] Anxiety: 1-Mildly Anxious Agitation: 0-Normal Activity Paroxysmal Sweats: No Perspiration Orientation: 0-Oriented Tacttile Disturbances: 0-None Auditory Disturbances: 0-None Visual Disturbances: 0-None Headache: 0-None Present CIWA-Ar Total Score: 2
== END 2019-11-22 09:07 | disposition home or self-care (01) | DRG 775 ==
LOC: YASAS 17:13 → Y3N 20:18
PROVIDERS: ADMIT Allergy & Immunology; ATTEND Allergy & Immunology
PROC: HZ2ZZZZ Detoxification Services for Substance Abuse Treatment (ICD-10-PCS; principal; 2019-11-17)
DX: F10.230 Alcohol dependence with withdrawal, uncomplicated (principal); F12.20 Cannabis dependence, uncomplicated; F17.210 Nicotine dependence, cigarettes, uncomplicated; F19.282 Other psychoactive substance dependence with psychoactive substance-induced sleep disorder; F25.9 Schizoaffective disorder, unspecified; F43.10 Post-traumatic stress disorder, unspecified; E10.9 Type 1 diabetes mellitus without complications; Z79.4 Long term (current) use of insulin; E78.5 Hyperlipidemia, unspecified; E78.00 Pure hypercholesterolemia, unspecified; Z91.410 Personal history of adult physical and sexual abuse; Z62.810 Personal history of physical and sexual abuse in childhood; Z88.8 Allergy status to other drugs, medicaments and biological substances; Z91.018 Allergy to other foods; Z91.013 Allergy to seafood; Z88.0 Allergy status to penicillin; Z91.5 Personal history of self-harm
CPT/HCPCS: 36415; 80053; 81025; 82962; 85027; 86593; 93005; 93010